=== PATIENT | female | born 1990 | race Caucasian/White ===

== ENCOUNTER 2016-11-27 21:43 | Emergency (ER) | payer SELFPAY ==
[2016-11-27] MEDS ORDERED: ACETAMINOPHEN 325 MG TABLET PO ONE (22:04)
[2016-11-27] MEDS ORDERED: NORMAL SALINE 1000 ML 2,000 ML IV ONE (22:17)
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
[2016-11-27 22:54] LABS: ALANINE AMINOTRANSFERASE 24 U/L (9-52); ALBUMIN 3.5 g/dL (3.5-5.0); ALKALINE PHOSPHATASE 64 U/L (38-126); ANION GAP 11 (5-19); ASPARTATE AMINO TRANSFERASE 15 U/L (14-36); BILIRUBIN,DIRECT 0.4 mg/dL (0.0-0.4); BILIRUBIN,TOTAL 1.1 mg/dL (0.2-1.3); BLOOD UREA NITROGEN 8 mg/dL (7-20); CALCIUM 8.4 mg/dL (8.4-10.2); CARBON DIOXIDE 25 mmol/L (22-30); CHLORIDE 108 mmol/L (98-107); CREATINE KINASE 25 U/L (30-135); CREATININE RESULT 0.68 mg/dL (0.52-1.25); GLUCOSE 101 mg/dL (75-110); POTASSIUM 3.5 mmol/L (3.6-5.0); SODIUM 143.8 mmol/L (137-145)
[2016-11-27 23:53] LABS: APPEARANCE,URINE SLIGHTLY-CLOUDY; BILIRUBIN,URINE NEGATIVE (NEGATIVE); GLUCOSE, URINE NEGATIVE (NEGATIVE); KETONES,URINE NEGATIVE (NEGATIVE); LEUKOCYTE ESTERASE,URINE SMALL (NEGATIVE); NITRITE,URINE POSITIVE (NEGATIVE); PROTEIN,URINE NEGATIVE (NEGATIVE); URINE SPECIFIC GRAVITY 1.003; UROBILINOGEN,URINE NEGATIVE mg/dL (<2.0)
[2016-11-28] MEDS ORDERED: CEPHALEXIN 500 MG CAPSULE PO ONE (00:14)
[2016-11-28 00:39] VITALS: BP 113/74
== END 2016-11-28 00:39 | disposition home or self-care (01) ==
LOC: ER 21:43
DX: N30.90 Cystitis, unspecified without hematuria (principal); E86.0 Dehydration; R50.9 Fever, unspecified; R11.10 Vomiting, unspecified; R10.30 Lower abdominal pain, unspecified; Z87.42 Personal history of other diseases of the female genital tract; Z86.14 Personal history of Methicillin resistant Staphylococcus aureus infection
CPT/HCPCS: 99284; 96360; 96361; 36415; 87086; 82550; 84703; 87088; 80053; 81001; 87186; J7030

== ENCOUNTER 2016-12-28 10:23 | Emergency (ER) | payer SELFPAY ==
[2016-12-28] MEDS ORDERED: SULFAMETHOXAZOLE/TRIMETHOPRIM 800-160 MG TABLET PO ONE (10:54)
[2016-12-28] MEDS ORDERED: CEPHALEXIN 500 MG CAPSULE PO ONE (10:54)
--- NOTE | 2016-12-28 10:57 | ER Document Report ---
HPI - HPI Patient complains to provider of: hand abscess Onset: Other - 3 days Onset/Duration: Persistent Quality of pain: Sharp Pain Level: 2 Context: Presents complaining of left dorsal hand tenderness and swelling. Patient denies any fever or history of MRSA. Patient does states she has a history of previous IV drug use although denies any current IV drug use. Associated Symptoms: Other - Hand abscess. denies: Fever Exacerbated by: Movement Relieved by: Denies Similar symptoms previously: Yes Recently seen / treated by doctor: No - ROS ROS below otherwise negative: Yes Systems Reviewed and Negative: Yes All other systems reviewed and negative - CONSTITUTIONAL Constitutional: DENIES: Fever, Chills - RESPIRATORY Respiratory: DENIES: Trouble Breathing - GASTROINTESTINAL Gastrointestinal: DENIES: Nausea, Patient vomiting - REPRODUCTIVE Reproductive: DENIES: : - MUSCULOSKELETAL Musculoskeletal: REPORTS: Extremity pain, Swelling - DERM Skin Color: Erythema Notes: abscess Past Medical History - General Information source: Patient - Social History Smoking Status: Current Every Day Smoker Frequency of alcohol use: Occasional Drug Abuse: Other - hx IV drug abuse Occupation: none Lives with: Family Family History: Malignancy Neurological Medical History: Reports: Hx Migraine. Denies: Hx Cerebrovascular Accident, Hx Seizures Endocrine Medical History: Denies: Hx Diabetes Mellitus Type 1, Hx Diabetes Mellitus Type 2 Renal/ Medical History: Reports: Hx Ovarian Cysts. Denies: Hx Peritoneal Dialysis Skin Medical History: Reports Hx Cellulitis, Reports Hx MRSA Psychiatric Medical History: Reports: Hx Anxiety, Hx Depression Past Surgical History: Reports: Hx Section - Immunizations Immunizations up to date: Yes Hx Diphtheria, Pertussis, Tetanus Vaccination: Yes Vertical Provider Document - CONSTITUTIONAL Agree With Documented VS: Yes Exam Limitations: No Limitations General Appearance: WD/WN, No Apparent Distress - INFECTION CONTROL TRAVEL OUTSIDE OF THE [place] IN LAST 30 DAYS: No - HEENT HEENT: Atraumatic, Normocephalic - NECK Neck: Normal Inspection - RESPIRATORY Respiratory: Breath Sounds Normal, No Respiratory Distress O2 Sat by Pulse Oximetry: 100 - CARDIOVASCULAR Cardiovascular: Regular Rate, Regular Rhythm, No Murmur Pulses: Normal: Radial - MUSCULOSKELETAL/EXTREMETIES Musculoskeletal/Extremeties: GILBERTO DEL ANGEL - NEURO Level of Consciousness: Awake, Alert, Appropriate Motor/Sensory: No Motor Deficit - DERM Integumentary: Warm, Dry, Abscess - Patient with pointing, fluctuant abscess to dorsal aspect of left hand measuring 1.5 cm diameter. Patient with makeup covering various track lopez to bilateral upper extremities Course - Vital Signs Vital signs: Temp Pulse Resp BP Pulse Ox 97.9 F 76 16 118/73 100 12/28/16 10:27 12/28/16 10:27 12/28/16 10:27 12/28/16 10:12/28/16 10:27 Procedures - Incision and Drainage Left Hand Type: Simple Anesthetic type: 1% Lidocaine Blade size: 11 I&D procedure: Betadine prep applied Incision Method: Incision made by scalpel Amount/type of drainage: large amount of purulent drainage Hands back picture: 1 - 1.5 cm pointing abscess with fluctuance Discharge - Discharge Clinical Impression: Abscess, hx iv drug use Condition: Stable Disposition: HOME, SELF-CARE Instructions: Abscess ([facility]), Trimethoprim-Sulfa ([facility]), Cephalexin ([facility]), Post Incision and Drainage Additional Instructions: Return immediately for any new or worsening symptoms Followup with your primary care provider, call tomorrow to make a followup appointment Return in 2 days for wound recheck Avoid injecting drugs into your veins as this can cause serious infections that can be life-threatening wound culture is pending, we will call if you need different treatment follow up with hand specialist, Dr Simpson, for any continued problems Prescriptions: Cephalexin Monohydrate [Keflex 500 mg Capsule] 500 mg PO Q6H 7 Days Naproxen [Naprosyn 250 Nmg Tablet] 1 tab PO BID #14 tablet Sulfamethoxazole/Trimethoprim [Bactrim Ds Tablet] 1 each PO BID #20 tablet Referrals: SHAYNA SIMPSON, [ACTIVE STAFF] - Follow up as needed
[2016-12-28] MEDS ORDERED: IBUPROFEN 800 MG TABLET PO ONE (10:58)
[2016-12-28 12:07] VITALS: BP 114/74
== END 2016-12-28 12:07 | disposition home or self-care (01) ==
LOC: ER 10:23
PROC: 0H9GXZZ Drainage of Left Hand Skin, External Approach (ICD-10-PCS; principal; 2016-12-28)
DX: L02.512 Cutaneous abscess of left hand (principal); F17.200 Nicotine dependence, unspecified, uncomplicated; Z86.14 Personal history of Methicillin resistant Staphylococcus aureus infection
CPT/HCPCS: 87070; 87075; 87077; 87186; 87205; 99283

== ENCOUNTER 2017-01-28 18:24 | Emergency (ER) | payer SELFPAY ==
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
[2017-01-28] MEDS ORDERED: DIPH/PERTUSS(ACELL)/TETANUS VAC/PF 0.5 ML SYR (>=10YO) IM ONE (18:39)
[2017-01-28 19:04] VITALS: BP 116/80
== END 2017-01-28 19:05 | disposition home or self-care (01) ==
LOC: ER 18:24
DX: T40.1X1A Poisoning by heroin, accidental (unintentional), initial encounter (principal); Y92.002 Bathroom of unspecified non-institutional (private) residence as the place of occurrence of the external cause; F13.10 Sedative, hypnotic or anxiolytic abuse, uncomplicated; S40.812A Abrasion of left upper arm, initial encounter; S40.811A Abrasion of right upper arm, initial encounter; S80.812A Abrasion, left lower leg, initial encounter; S80.811A Abrasion, right lower leg, initial encounter; X58.XXXA Exposure to other specified factors, initial encounter; F17.210 Nicotine dependence, cigarettes, uncomplicated; Z71.6 Tobacco abuse counseling; Z86.14 Personal history of Methicillin resistant Staphylococcus aureus infection; Z62.820 Parent-biological child conflict
CPT/HCPCS: 90471; 90715; 99284

== ENCOUNTER 2017-02-01 00:46 | Emergency (ER) | payer SELFPAY ==
--- NOTE | 2017-02-01 01:28 | ER Document Report ---
ED General - General Chief Complaint: Overdose Stated Complaint: POSSIBLE OVERDOSE Time Seen by Provider: 02/01/17 00:57 Notes: Patient is a 26-year-old female who presents with complaint of accidental overdose on heroin. Patient says she does not use heroin every day. She denies doing any other drugs with heroin. She was given Narcan because she was not breathing. She is now back to her baseline. She denies any suicidal ideations. She denies wanting herself. She denies really wanting any inpatient help for opiate dependence. She claims that she is not dependent on opiates because she does not use them every day. TRAVEL OUTSIDE OF THE [place] IN LAST 30 DAYS: No - Related Data Allergies/Adverse Reactions: No Known Allergies Allergy (Verified 01/28/17 18:38) Past Medical History - Social History Smoking Status: Current Every Day Smoker Chew tobacco use (# tins/day): No Frequency of alcohol use: Social Drug Abuse: Heroin, Marijuana Family History: Malignancy Neurological Medical History: Reports: Hx Migraine. Denies: Hx Cerebrovascular Accident, Hx Seizures Endocrine Medical History: Denies: Hx Diabetes Mellitus Type 1, Hx Diabetes Mellitus Type 2 Renal/ Medical History: Reports: Hx Ovarian Cysts. Denies: Hx Peritoneal Dialysis Skin Medical History: Reports Hx Cellulitis, Reports Hx MRSA Psychiatric Medical History: Reports: Hx Anxiety, Hx Depression Past Surgical History: Reports: Hx Section - Immunizations Immunizations up to date: Yes Hx Diphtheria, Pertussis, Tetanus Vaccination: Yes Review of Systems - Review of Systems Notes: My Normal Review Basic REVIEW OF SYSTEMS: CONSTITUTIONAL : Denies fever, chills, or sweats. Denies recent illness. EENT: Denies eye, ear, throat, or mouth pain or symptoms. Denies nasal or sinus congestion. CARDIOVASCULAR: Denies chest pain. RESPIRATORY: Respiratory depression due to opiates. This has since been reversed with Narcan. GASTROINTESTINAL: Denies abdominal pain. Denies nausea, vomiting, or diarrhea. MUSCULOSKELETAL: Denies neck or back pain or joint pain or swelling. SKIN: Denies rash or skin lesions. NEUROLOGICAL: Denies altered mental status or loss of consciousness. Denies headache. Denies weakness or paralysis or loss of use of either side. Denies problems with gait or speech. Denies sensory or motor loss. PSYCHIATRIC: Denies anxiety or stress or depression. ALL OTHER SYSTEMS REVIEWED AND NEGATIVE. Physical Exam - Vital signs Vitals: Temp Pulse Resp BP Pulse Ox 98 F 92 18 131/74 H 98 02/01/17 01:06 02/01/17 01:06 02/01/17 01:06 02/01/17 01:06 02/01/17 01:06 - Notes Notes: General Appearance: Well nourished, alert, cooperative, no acute distress, no obvious discomfort. Vitals: reviewed, See vital signs table. Head: no swelling or tenderness to the head Eyes: PERRL, EOMI, Conjuctiva clear Mouth: No decreasd moisture Lungs: No wheezing, No rales, No rhonci, No accessory muscle use, good air exchange bilaterally. Heart: Normal rate, Regular rythm, No murmur, no rub Abdomen: Normal BS, soft, No rigidity, No abdominal tenderness, No guarding, no rebound, no abdominal masses, no organomegaly Extremities: strength 5/5 in all extremities, good pulses in all extremities, multiple track lopez in both upper extremities. Skin: warm, dry, appropriate color, no rash Neuro: speech clear, oriented x 3, normal affect, responds appropriately to questions. Course - Re-evaluation Re-evalutation: 02/01/17 06:26 Patient is now awake and alert. She has had no further runs of hypoxemia. Her blood pressure was a little bit low around 4 AM therefore I gave her a small dose of Narcan. She has been fine ever since. She looks well. She is awake and alert and walking around without difficulty. Her mom is at bedside. I talked to him both at length. Patient says she can easily quit heroin use. She says she has done on her own without help. Her mom is concerned because she keeps going back to it. Her twin sister from an overdose not too long ago. Patient does agree to speak with the psychiatrist about further rehabilitation options and also about being set up for counseling due to the loss of her sister. She currently does not want any inpatient options at this time and therefore medical clearance blood work is not required. I did explain to him the Narcan I will be prescribing her. I explained to her that I hope she never has to use as however if she is to overdose again at least that she has an option to be lifesaving. I informed her she must return to ER immediately if she overuses a Narcan. Patient and mother agree with plan and patient will likely be discharged after they are evaluated by psychiatry. Dictation of this chart was performed using voice recognition software; therefore, there may be some unintended grammatical errors. - Vital Signs Vital signs: Temp Pulse Resp BP Pulse Ox 98 F 84 16 119/77 98 02/01/17 01:06 02/01/17 08:49 02/01/17 08:49 02/01/17 08:49 02/01/17 08:49 Discharge - Discharge Clinical Impression: Accidental heroin overdose Qualifiers: Encounter type: initial encounter Qualified Code(s): T40.1X1A - Poisoning by heroin, accidental (unintentional), initial encounter Condition: Good Disposition: HOME, SELF-CARE Additional Instructions: Please follow-up with resources given to you by the psychiatrist. Please return to the ER immediately if you have severe depression, recurrent opiate use leading to difficulty breathing, if you ever have to use a Narcan medication , or if you have any further concerns. Anytime you use Narcan you must return to the ER so we can monitor you. Prescriptions: Naloxone HCl [Narcan] 4 mg NS TREMAYNE #1 spray Forms: Return to Work
[2017-02-01] MEDS ORDERED: NALOXONE HCL INJ/PF 0.4 MG/1 ML SDV IV ONE (04:11)
[2017-02-01 08:50] VITALS: BP 119/77
--- NOTE | 2017-02-01 11:57 | ER Document Report ---
ED Psych Disorder / Suicide - General Chief Complaint: Overdose Stated Complaint: POSSIBLE OVERDOSE Time Seen by Provider: 02/01/17 00:57 Information source: Patient, Parent TRAVEL OUTSIDE OF THE [place] IN LAST 30 DAYS: No - HPI Notes: Patient is a 26-year-old female who presents with complaint of excellent overdose on heroin. Patient says she does not use heroin every day. She denies doing any other drugs with heroin. She was given Narcan because she was not breathing. She is now back to her baseline. She denies any suicidal ideations. She denies wanting herself. She denies really wanting any inpatient help for opiate dependence. She claims that she is not dependent on opiates because she does not use them every day. Patient reports she "accidentally overdosed" on heroin. Patient stated that she has used heroin "on and off" for a couple of years. She has been inpatient 3 times to include [facility] and [facility]. Last time she went inpatient was in April. Patient reports she had been sober from heroin until this week. Patient does admit she used Percocets "on and off" since April. Patient states that she did go to [facility] however it was "not good" because the doctor "treated me like crap and staff acted like you are nothing just a junky. " Patient's mother reports family history of substance abuse to include herself and the patient's twin sister. Patient's twin sister overdosed on August 2015 when using heroin laced with fentanyl. Patient's mother states she has never used heroin but did white with cocaine. She disclose confusion on why people would want to use heroin since they just seem to sleep where "at least with cocaine you were doing stuff and living her life." Patient is alert and orientated to person, place, time and circumstance. Mood is euthymic with congruent affect. Patient denies suicidal and homicidal ideation. Patient denies auditory and visual hallucinations. Delusions were absent and behaviors congruent with intact reality based presentation (i.e. organized linear thinking). Eye contact was fair. Intellectual ability appears to be within average range. Conversational speech was within normal rate, tone and prosody. Attention and concentration was fair. Insight, judgment, impulse control is poor due to substance abuse. Substance abuse; opiate- moderate Impression\\plan: Patient is considered psychiatrically clear for discharge. She does not meet IVC criteria per [place] GS 122C. Patient denies suicidal and homicidal ideation. Delusions are absent and behavior is congruent with intact reality based presentation (i.e. organized, linear thinking). Patient disclosed heroin abuse with multiple attempts at sobriety. Patient accepted substance abuse treatment resources. Patient is recommended follow-up with outpatient substance abuse treatment. Dr. Posada was consulted on the care and management of this patient; attending physician is in agreement with recommendations and disposition. - Related Data Allergies/Adverse Reactions: No Known Allergies Allergy (Verified 01/28/17 18:38) Past Medical History - Social History Smoking Status: Current Every Day Smoker Chew tobacco use (# tins/day): No Frequency of alcohol use: Social Drug Abuse: Heroin, Marijuana Family History: Malignancy Neurological Medical History: Reports: Hx Migraine. Denies: Hx Cerebrovascular Accident, Hx Seizures Endocrine Medical History: Denies: Hx Diabetes Mellitus Type 1, Hx Diabetes Mellitus Type 2 Renal/ Medical History: Reports: Hx Ovarian Cysts. Denies: Hx Peritoneal Dialysis Skin Medical History: Reports Hx Cellulitis, Reports Hx MRSA Psychiatric Medical History: Reports: Hx Anxiety, Hx Depression Past Surgical History: Reports: Hx Section - Immunizations Immunizations up to date: Yes Hx Diphtheria, Pertussis, Tetanus Vaccination: Yes Physical Exam - Vital signs Vitals: Temp Pulse Resp BP Pulse Ox 98 F 92 18 131/74 H 98 02/01/17 01:06 02/01/17 01:06 02/01/17 01:06 02/01/17 01:06 02/01/17 01:06 Course - Vital Signs Vital signs: Temp Pulse Resp BP Pulse Ox 98 F 84 16 119/77 98 02/01/17 01:06 02/01/17 08:49 02/01/17 08:49 02/01/17 08:49 02/01/17 08:49 Discharge - Discharge Clinical Impression: Accidental heroin overdose Qualifiers: Encounter type: initial encounter Qualified Code(s): T40.1X1A - Poisoning by heroin, accidental (unintentional), initial encounter Condition: Good Disposition: HOME, SELF-CARE Additional Instructions: Please follow-up with resources given to you by the psychiatrist. Please return to the ER immediately if you have severe depression, recurrent opiate use leading to difficulty breathing, if you ever have to use a Narcan medication , or if you have any further concerns. Anytime you use Narcan you must return to the ER so we can monitor you. Prescriptions: Naloxone HCl [Narcan] 4 mg NS TREMAYNE #1 spray Forms: Return to Work
== END 2017-02-01 08:52 | disposition home or self-care (01) ==
LOC: ER 00:46
DX: T40.1X1A Poisoning by heroin, accidental (unintentional), initial encounter (principal); F17.200 Nicotine dependence, unspecified, uncomplicated; Z86.14 Personal history of Methicillin resistant Staphylococcus aureus infection; Z81.3 Family history of other psychoactive substance abuse and dependence
CPT/HCPCS: 99285; 96374; J2310

== ENCOUNTER 2017-03-08 15:56 | Emergency (ER) | payer SELFPAY ==
[2017-03-08 16:09] VITALS: BP 145/77
[2017-03-08] MEDS ORDERED: ACETAMINOPHEN 325 MG TABLET PO ONE (17:54)
[2017-03-08] MEDS ORDERED: CEPHALEXIN 500 MG CAPSULE PO ONE (20:24)
[2017-03-08] MEDS ORDERED: SULFAMETHOXAZOLE/TRIMETHOPRIM 800-160 MG TABLET PO ONE (20:24)
[2017-03-08] MEDS ORDERED: HYDROCODONE/ACETAMINOPHEN 5-325 MG 6 TAB/DSPK PO PRN (20:25)
--- NOTE | 2017-03-08 20:28 | ER Document Report ---
ED Skin Rash/Insect Bite/Abscs - General Chief Complaint: Insect Bite Stated Complaint: POSSIBLE BUG BITE Time Seen by Provider: 03/08/17 20:23 Mode of Arrival: Ambulatory Information source: Patient Notes: 26-year-old female presents to ED for red swollen painful left foot. She states a bug walked across her foot a couple days ago the next day she did not have any redness or pain by the next day her foot became red and swollen and now it is painful to even put her foot on the ground. TRAVEL OUTSIDE OF THE [place] IN LAST 30 DAYS: No - HPI Patient complains to provider of: Tender/swollen area Onset: Other Onset/Duration: Gradual - Several days ago Quality of pain: Pressure, Sharp, Throbbing Severity: Severe Pain Level: 5 Skin Character: Abscess, Erythema, Swelling, Tenderness Skin Temperature: Hot Quality of rash: Painful Identify cause: No Exacerbated by: Movement, Walking Relieved by: Denies Similar symptoms previously: No Recently seen / treated by doctor: No - Related Data Allergies/Adverse Reactions: No Known Allergies Allergy (Verified 01/28/17 18:38) Past Medical History - General Information source: Patient - Social History Smoking Status: Current Every Day Smoker Cigarette use (# per day): Yes - 1/2-1 Chew tobacco use (# tins/day): No Smoking Education Provided: Yes - less than 1 min Frequency of alcohol use: None Drug Abuse: Marijuana Occupation: no Lives with: Parents Family History: Malignancy Patient has suicidal ideation: No Patient has homicidal ideation: No - Past Medical History Cardiac Medical History: Reports: None Pulmonary Medical History: Reports: None EENT Medical History: Reports: None Neurological Medical History: Reports: Hx Migraine Endocrine Medical History: Reports: None Renal/ Medical History: Reports: Hx Ovarian Cysts Malignancy Medical History: Reports: None GI Medical History: Reports: None Musculoskeltal Medical History: Reports None Skin Medical History: Reports Hx Cellulitis, Reports Hx MRSA Psychiatric Medical History: Reports: Hx Anxiety, Hx Depression Past Surgical History: Reports: Hx Section - Immunizations Immunizations up to date: Yes Hx Diphtheria, Pertussis, Tetanus Vaccination: Yes Review of Systems - Review of Systems Constitutional: No symptoms reported EENT: No symptoms reported Cardiovascular: No symptoms reported Respiratory: No symptoms reported Gastrointestinal: No symptoms reported Genitourinary: No symptoms reported Female Genitourinary: No symptoms reported Musculoskeletal: No symptoms reported Skin: Change in color, Lesions, Other - Red swollen painful left foot with a tender probable abscess to the top of the foot. Patient states a bug walked across her foot several days ago and now she has swelling and tenderness to the foot Hematologic/Lymphatic: No symptoms reported Neurological/Psychological: No symptoms reported Physical Exam - Vital signs Vitals: Temp Pulse Resp BP Pulse Ox 98.3 F 86 16 145/77 H 100 03/08/17 16:07 03/08/17 16:07 03/08/17 16:07 03/08/17 16:07 03/08/17 16:07 Interpretation: Normal - General General appearance: Appears well, Alert - HEENT Head: Normocephalic, Atraumatic Eyes: Normal Pupils: PERRL - Respiratory Respiratory status: No respiratory distress Chest status: Nontender Breath sounds: Normal Chest palpation: Normal - Cardiovascular Rhythm: Regular Heart sounds: Normal auscultation Murmur: No - Abdominal Inspection: Normal Distension: No distension Bowel sounds: Normal Tenderness: Nontender Organomegaly: No organomegaly - Back Back: Normal, Nontender - Extremities General upper extremity: Normal inspection, Nontender, Normal color, Normal ROM , Normal temperature General lower extremity: Normal ROM, Normal temperature, Normal weight bearing. No: Venkatesh's sign Foot: Tender, Edema, No evidence of FB, Other - Abscess to the top of the left foot. No: Abrasion, Deformity, Ecchymosis, Instability, Laceration, Metatarsal compress. pain, Nail injury, Navicular tenderness, Puncture wound, Tender 5th metatarsal, Unable to bear weight - Neurological Neuro grossly intact: Yes Cognition: Normal Orientation: AAOx4 Herman Coma Scale Eye Opening: Spontaneous [place] Coma Scale Verbal: Oriented [place] Coma Scale Motor: Obeys Commands [place] Coma Scale Total: 15 Speech: Normal Motor strength normal: LUE, RUE, LLE, RLE Sensory: Normal - Psychological Associated symptoms: Normal affect, Normal mood - Skin Skin Temperature: Warm Skin Moisture: Dry Skin Color: Normal Skin irregularity: Abscess Location of irregularity: Other - Left foot Irregularity with: Swelling, Tenderness, Warmth Course - Re-evaluation Re-evalutation: 03/08/17 21:[address] Mosley for the abscess to the left top of the foot. He stated just I&D and started on antibiotics. Patient's abscess was I&D with copious amounts of purulent drainage. Wound culture was sent. Patient was started on Septra and Keflex. She was also given a [place] dispense pack for the pain. Patient given crutches due to the pain in her foot. Patient instructed to follow-up within the next 24-48 hours if pain swelling and redness have not improved. - Vital Signs Vital signs: Temp Pulse Resp BP Pulse Ox 98.3 F 86 16 145/77 H 100 03/08/17 16:07 03/08/17 16:07 03/08/17 16:07 03/08/17 16:07 03/08/17 16:07 Procedures - Incision and Drainage Left Foot Time completed: 20:54 Type: Simple Anesthetic type: 1% Lidocaine mL's of anesthetic: 5 Blade size: 11 I&D procedure: Shurclens applied Incision Method: Incision made by scalpel Amount/type of drainage: copious amount of purulent drainage Discharge - Discharge Clinical Impression: abscess left top of foot Condition: Stable Disposition: HOME, SELF-CARE Instructions: Family Physicians / Practices Additional Instructions: ABSCESS: You have an abscess (boil). This a pus-forming infection, usually due to staph. Some boils may be left to drain on their own, but most require lancing. From the time the tender lump first appears, it may be three or four days before the abscess is ready to jason. Local heat and rest help at this stage of treatment. An antibiotic may prevent spread of the infection. Once the abscess is opened, packing may be placed into it. This is done so pus is not sealed inside by premature closure of the cavity. The packing will be removed at your follow-up visit or you may be advised to remove it yourself at home. Sometimes this packing must be replaced a few times during healing. The wound will heal with surprisingly little scar. Depending on the size and location of an abscess, healing can take one to four weeks. You may shower and wash the area around the incision site two or three times a day. Antibiotics may be prescribed, but are usually not necessary after an abscess has been drained. If you develop fever, chills, worsening pain, or increasing swelling in the area, call the doctor or return immediately. POST INCISION AND DRAINAGE: You have had an incision made to allow drainage of an abscess. The incision must remain open so that pus and debris can drain from the wound. If the abscess cavity is large, packing is placed. This keeps the tissues from collapsing and trapping pus inside, while the body shrinks the cavity. The packing may need to be replaced every day or two. The physician will instruct you on the packing. Keep a bulky dressing over the area. Replace it if it becomes saturated with blood or pus. Do not disturb the packing (if present). You may shower and cleanse the area with gentle soap and warm water two or three times a day. Local warmth may be soothing, and may promote faster healing. Return if you develop high fever or chills, or if you note spreading redness, increasing swelling, or increasing tenderness. ORAL NARCOTIC MEDICATION: You have been given a [employer] dispense pack for pain control. This medication is a narcotic. It's best taken with food, as nausea can result if taken on an empty stomach. Don't operate machinery or drive within six hours of taking this medication. Do not combine this medicine with alcohol, or with any medication which can cause sedation (such as cold tablets or sleeping pills) unless you get permission from the physician. Narcotics tend to cause constipation. If possible, drink plenty of fluids and eat a diet high in fiber and fruits. CEPHALEXIN: The antibiotic you've been prescribed is a member of the cephalosporin class. This type of antibiotic covers a wide variety of infections, including those of the skin, lungs, and urinary tract. It's useful for staph infections. This antibiotic is slightly similar to the penicillin family. In rare cases , a person who is allergic to penicillin will also be allergic to this medication. If you have had a severe allergic reaction to penicillin, and have not taken this antibiotic since that time, notify your doctor. Antibiotics which cover many germs ("broad spectrum" antibiotics) are more likely to cause diarrhea or "yeast" infections. Women prone to vaginal yeast problems may suffer an attack after taking this antibiotic. In infants, oral thrush (white spots "stuck" on the cheek) or yeast diaper rash may result. See your doctor if these problems occur. Call at once if you develop itching, hives , shortness of breath, or lightheadedness. TRIMETHOPRIM-SULFA: You have been given a prescription for trimethoprim-sulfa (TMS, Septra, Bactrim). This is a combination antibiotic of the sulfa class, often used for urinary tract infections, middle ear infections, bronchitis, shigella intestinal infection, and Pneumocystis pneumonia. TMS is usually well-tolerated. Occasional side effects include nausea and decreased appetite. Septra is not recommended for infants less than two months of age. Do not take this medication if you have experienced severe side effects or allergy to sulfa medicine. You should stop this medicine at once and contact your physician if you develop any rash, joint pain, shortness of breath, bruising, or jaundice ( yellow color in the skin), or if you develop any other new or unusual symptoms. Epsom Salt Soaks Soak the wound area in a container of warm epsom salt water. If you can't get the wound area into a bucket or mendoza, use a folded towel soaked in the epsom salt solution and apply to the area. Use clean hot tap water (about the temperature of a very warm bath), mixing in about one (1) teaspoon for every pint of water. Two gallon --> 16 teaspoons Epsom Salts One gallon --> 8 teaspoons Epsom Salts Two quarts --> 4 teaspoons Epsom Salts One quart --> 2 teaspoons Epsom Salts Soak the wound for about 20 minutes while gently moving it around in the water. Repeat this four (4) times a day. FOLLOW-UP CARE: Return to the ED in the next 24-48 hours if redness swelling and pain have not improved. Take antibiotics until they are completed. You have been given pain medicine that she can take every 6 hours. Be sure to soak the foot as instructed. Most simple abscesses will not require a follow up visit. If you had packing placed in the abscess, remove it as instructed by the physician. If you have been referred to a physician for follow-up care, call the physicians office for an appointment as you were instructed or within the next two days. If you experience worsening or a significant change in your symptoms, return to the Emergency Department at any time for re-evaluation. Prescriptions: Cephalexin Monohydrate [Keflex 500 mg Capsule] 500 mg PO QID #20 capsule Sulfamethoxazole/Trimethoprim [Septra-Ds 800-160 mg Tablet] 1 tab PO BID #20 tablet Forms: Elevated Blood Pressure, Smoking Cessation Education
== END 2017-03-08 21:24 | disposition home or self-care (01) ==
LOC: ER 15:56
PROC: 0H9NXZZ Drainage of Left Foot Skin, External Approach (ICD-10-PCS; principal; 2017-03-08)
DX: L02.612 Cutaneous abscess of left foot (principal); F17.210 Nicotine dependence, cigarettes, uncomplicated
CPT/HCPCS: 87070; 87075; 87077; 87186; 87205; 99283

== ENCOUNTER 2017-03-12 09:51 | Emergency (ER) | payer SELFPAY ==
[2017-03-12] MEDS ORDERED: NORMAL SALINE 1000 ML 1,000 ML IV ONE (10:38)
[2017-03-12 11:31] LABS: ABSOLUTE BASOPHILS # (AUTO) 0.1 10^3/uL (0.0-0.2); ABSOLUTE EOSINOPHILS # (AUTO) 0.1 10^3/uL (0.0-0.6); ABSOLUTE LYMPHOCYTES (AUTO) 1.3 10^3/uL (0.5-4.7); ABSOLUTE MONOCYTES (AUTO) 0.4 10^3/uL (0.1-1.4); ABSOLUTE NEUT (AUTO) 7.5 10^3/uL (1.7-8.2); BASOPHILS % (AUTO) 0.8 % (0-2); EOSINOPHILS % (AUTO) 0.8 % (0-6); HEMOGLOBIN 12.1 g/dL (12.0-15.5); HGB HCT DIFFERENCE 1.3; LYMPHOCYTES % (AUTO) 13.5 % (13-45); MEAN CORPUSCULAR HEMOGLOBIN 28.9 pg (27.0-33.4); MEAN CORPUSCULAR HGB CONC 34.5 g/dL (32.0-36.0); MEAN CORPUSCULAR VOLUME 84 fl (80-97); MONOCYTES % (AUTO) 4.1 % (3-13); RED BLOOD COUNT 4.17 10^6/uL (3.72-5.28); RED CELL DISTRIBUTION WIDTH 15.8 % (11.5-14.0); SEGMENTED NEUTROPHILS % (AUTO) 80.8 % (42-78); WHITE BLOOD COUNT 9.3 10^3/uL (4.0-10.5)
--- NOTE | 2017-03-12 11:42 | ER Document Report ---
ED Syncope and Near Syncope - General Chief Complaint: Foot Pain Stated Complaint: LEFT FOOT PAIN Time Seen by Provider: 03/12/17 10:01 Mode of Arrival: Ambulatory Information source: Patient, Parent Notes: Patient states that she had an incision and drainage procedure 4 days ago on a possible spider bite to her left foot. Patient denies seeing the spider bite her foot. Patient does report a previous history of IV drug use although declines any recent IV drug use. Patient was at home this morning and felt faint and had a syncopal episode 245 minutes prior to arrival. Patient denies any nausea, vomiting or diarrhea. Patient denies any recent bedrest, travel or immobilization. Patient denies any history of DVT or PE in the past. Patient denies any chest pain, dyspnea or palpitations. TRAVEL OUTSIDE OF THE [place] IN LAST 30 DAYS: No - HPI Episode witnessed (by whom): Yes Symptoms prior to episode: Other - Left foot pain from abscess drainage. No: Fever, Headache, Palpitations, Short of breath Quality of pain: Achy Pain Level: 3 Context: Collapsed. denies: Low blood sugar, Recent immobilization, Recent travel, Seizure activity observed Current symptoms: denies: Chest pain, Headache, Neck pain, Short of breath, Vomiting Similar symptoms previously: No Recently seen / treated by doctor: No - Related Data Allergies/Adverse Reactions: No Known Allergies Allergy (Verified 01/28/17 18:38) Past Medical History - General Information source: Patient - Social History Smoking Status: Current Every Day Smoker Frequency of alcohol use: None Drug Abuse: Cocaine, Marijuana, Other - Previous history of IV drug use Occupation: none Lives with: Spouse/Significant other Family History: Malignancy Neurological Medical History: Reports: Hx Migraine. Denies: Hx Cerebrovascular Accident, Hx Seizures Endocrine Medical History: Denies: Hx Diabetes Mellitus Type 1, Hx Diabetes Mellitus Type 2 Renal/ Medical History: Reports: Hx Ovarian Cysts. Denies: Hx Peritoneal Dialysis Skin Medical History: Reports Hx Cellulitis, Reports Hx MRSA Psychiatric Medical History: Reports: Hx Anxiety, Hx Depression Past Surgical History: Reports: Hx Section - Immunizations Immunizations up to date: Yes Hx Diphtheria, Pertussis, Tetanus Vaccination: Yes Review of Systems - Review of Systems Constitutional: No symptoms reported. denies: Fever EENT: No symptoms reported Cardiovascular: Syncope. denies: Chest pain, Palpitations, Dizziness Respiratory: Cough. denies: Short of breath Gastrointestinal: No symptoms reported. denies: Abdominal pain, Nausea, Vomiting Genitourinary: No symptoms reported Female Genitourinary: No symptoms reported. denies: Musculoskeletal: Other - left foot pain. denies: Back pain Skin: Other - abscess s/p I&D to left foot Hematologic/Lymphatic: No symptoms reported Neurological/Psychological: No symptoms reported Physical Exam - Vital signs Vitals: Temp Pulse BP Pulse Ox 98.6 F 89 130/66 H 97 03/12/17 14:57 03/12/17 14:57 03/12/17 14:57 03/12/17 14:57 - General General appearance: Appears well, Alert In distress: None - HEENT Head: Normocephalic, Atraumatic Eyes: Normal Conjunctiva: Normal Nasal: Normal Mouth/Lips: Normal Mucous membranes: Dry Neck: Normal, Supple. No: Lymphadenopathy - Respiratory Respiratory status: No respiratory distress Chest status: Nontender Breath sounds: Normal. No: Rales, Rhonchi, Stridor, Wheezing Chest palpation: Normal - Cardiovascular Rhythm: Regular Heart sounds: S1 appreciated, S2 appreciated Murmur: No - Abdominal Inspection: Normal Distension: No distension Tenderness: Nontender - Back Back: Normal, Nontender. No: CVA tenderness, Vertebra tenderness - Extremities General upper extremity: Normal inspection, Normal ROM General lower extremity: Tender - Tenderness to dorsal aspect of left foot at site of previous abscess status post incision and drainage, mild erythema surrounding lesion - Neurological Neuro grossly intact: Yes Cognition: Normal Herman Coma Scale Eye Opening: Spontaneous [place] Coma Scale Verbal: Oriented [place] Coma Scale Motor: Obeys Commands Herman Coma Scale Total: 15 - Psychological Associated symptoms: Normal affect, Normal mood - Skin Skin Temperature: Warm Skin Moisture: Dry Skin Color: Erythema - Dorsal aspect of left foot, Other - Multiple track lopez to bilateral upper extremities Course - Re-evaluation Re-evalutation: 03/12/17 11:[address] Merida regarding patient presentation diagnostic evaluation. 03/12/17 14:22 Discuss results of patient's diagnostic tests with Dr. Merida who agrees with discharge plan of care. Patient resting comfortably, patient denies any complaints at this time. Patient without any concerns of chest pain, dyspnea, palpitations, nausea or vomiting. Discussed results of patient's diagnostic test with patient. Patient offered to be given treatment center information. Discussed results of patient's wound culture and importance of continued treatment. Patient encouraged to increase fluids and avoid any recreational drug use. Patient advised of elevated potassium level and need for to have labs rechecked in 2 days. Patient is EKG without any significant changes. - Vital Signs Vital signs: Temp Pulse Resp BP Pulse Ox 98.6 F 89 130/66 H 97 03/12/17 14:57 03/12/17 14:57 03/12/17 14:57 03/12/17 14:57 - Laboratory Result Diagrams: 03/12/17 11:04 03/12/17 11:04 Laboratory results interpreted by me: 03/12/17 03/12/17 03/12/17 11:04 11:04 11:04 Hct 35.0 L RDW 15.8 H Seg Neutrophils % 80.8 H D-Dimer 1.03 H Potassium 5.3 H Glucose 119 H Ur Leukocyte Esterase 03/12/17 11:04 Hct RDW Seg Neutrophils % D-Dimer Potassium Glucose Ur Leukocyte Esterase TRACE H 03/12/17 14:24 Labs- Entire Visit 03/12/17 03/12/17 03/12/17 11:04 11:04 11:04 WBC 9.3 RBC 4.17 Hgb 12.1 Hct 35.0 L MCV 84 MCH 28.9 MCHC 34.5 RDW 15.8 H Plt Count 315 Seg Neutrophils % 80.8 H Lymphocytes % 13.5 Monocytes % 4.1 Eosinophils % 0.8 Basophils % 0.8 Absolute Neutrophils 7.5 Absolute Lymphocytes 1.3 Absolute Monocytes 0.4 Absolute Eosinophils 0.1 Absolute Basophils 0.1 D-Dimer Sodium 143.9 Potassium 5.3 H Chloride 105 Carbon Dioxide 24 Anion Gap 15 BUN 16 Creatinine 0.87 Est GFR ( Amer) > 60 Est GFR (Non-Af Amer) > 60 Glucose 119 H Calcium 10.1 Magnesium 2.2 Total Bilirubin 0.5 Direct Bilirubin 0.4 Indirect Bilirubin Not Reportable Neonat Total Bilirubin Not Reportable AST 31 ALT 36 Alkaline Phosphatase 57 Total Protein 7.8 Albumin 4.3 Serum HCG, Qual NEGATIVE Urine Color Urine Appearance Urine pH Ur Specific [place] Urine Protein Urine Glucose (UA) Urine Ketones Urine Blood Urine Nitrite Urine Bilirubin Urine Urobilinogen Ur Leukocyte Esterase Urine WBC (Auto) Urine RBC (Auto) U Hyaline Cast (Auto) Urine Bacteria (Auto) Squamous Epi Cells Auto Urine Mucus (Auto) Urine Ascorbic Acid Urine Opiates Screen Urine Methadone Screen Ur Barbiturates Screen Ur Phencyclidine Scrn Ur Amphetamines Screen U Benzodiazepines Scrn Urine Cocaine Screen U Marijuana (THC) Screen 03/12/17 03/12/17 03/12/17 11:04 11:04 11:04 WBC RBC Hgb Hct MCV MCH MCHC RDW Plt Count Seg Neutrophils % Lymphocytes % Monocytes % Eosinophils % Basophils % Absolute Neutrophils Absolute Lymphocytes Absolute Monocytes Absolute Eosinophils Absolute Basophils D-Dimer 1.03 H Sodium Potassium Chloride Carbon Dioxide Anion Gap BUN Creatinine Est GFR ( Amer) Est GFR (Non-Af Amer) Glucose Calcium Magnesium Total Bilirubin Direct Bilirubin Indirect Bilirubin Neonat Total Bilirubin AST ALT Alkaline Phosphatase Total Protein Albumin Serum HCG, Qual Urine Color YELLOW Urine Appearance SLIGHTLY-CLOUDY Urine pH 7.0 Ur Specific [place] 1.010 Urine Protein NEGATIVE Urine Glucose (UA) NEGATIVE Urine Ketones NEGATIVE Urine Blood NEGATIVE Urine Nitrite NEGATIVE Urine Bilirubin NEGATIVE Urine Urobilinogen NEGATIVE Ur Leukocyte Esterase TRACE H Urine WBC (Auto) 9 Urine RBC (Auto) 0 U Hyaline Cast (Auto) 5 Urine Bacteria (Auto) TRACE Squamous Epi Cells Auto 6 Urine Mucus (Auto) RARE Urine Ascorbic Acid NEGATIVE Urine Opiates Screen UNCONFIRMED POSITIVE Urine Methadone Screen NEGATIVE Ur Barbiturates Screen NEGATIVE Ur Phencyclidine Scrn NEGATIVE Ur Amphetamines Screen NEGATIVE U Benzodiazepines Scrn NEGATIVE Urine Cocaine Screen UNCONFIRMED POSITIVE U Marijuana (THC) Screen UNCONFIRMED POSITIVE - Diagnostic Test Radiology reviewed: Reports reviewed Discharge - Discharge Clinical Impression: hx abscess to left foot, History of recreational drug use, Hyperkalemia Syncope Qualifiers: Syncope type: unspecified Qualified Code(s): R55 - Syncope and collapse Condition: Stable Disposition: HOME, SELF-CARE Instructions: Antibiotic Therapy ([facility]), Cocaine Abuse ([facility]), Dressing Instructions for Open Wounds ([facility]), MRSA Cellulitis ([facility]), Syncopal Episode ([facility] ) Additional Instructions: Return immediately for any new or worsening symptoms Followup with your primary care provider, call tomorrow to make a followup appointment Continue to take your antibiotic as previously prescribed Avoid any recreational drug use Follow-up with the primary care provider for recheck. Your potassium tests with mildly elevated today. The primary doctor can recheck this test in 2 days. Referrals: [facility] [Provider Group] - Follow up as needed [facility] [Provider Group] - Follow up as needed [facility] [Provider Group] - Follow up as needed [facility] [Provider Group] - Follow up tomorrow
[2017-03-12 11:47] LABS: URINE BARBITURATES SCREEN NEGATIVE; URINE METHADONE SCREEN NEGATIVE; URINE OPIATES LOW UNCONFIRMED POSITIVE; URINE PHENCYCLIDINE SCREEN NEGATIVE
[2017-03-12 11:58] LABS: ALANINE AMINOTRANSFERASE 36 U/L (9-52); ALBUMIN 4.3 g/dL (3.5-5.0); ALKALINE PHOSPHATASE 57 U/L (38-126); ANION GAP 15 (5-19); ASPARTATE AMINO TRANSFERASE 31 U/L (14-36); BILIRUBIN,DIRECT 0.4 mg/dL (0.0-0.4); BILIRUBIN,TOTAL 0.5 mg/dL (0.2-1.3); BLOOD UREA NITROGEN 16 mg/dL (7-20); CALCIUM 10.1 mg/dL (8.4-10.2); CARBON DIOXIDE 24 mmol/L (22-30); CHLORIDE 105 mmol/L (98-107); CREATININE RESULT 0.87 mg/dL (0.52-1.25); GLUCOSE 119 mg/dL (75-110); MAGNESIUM 2.2 mg/dL (1.6-2.3); POTASSIUM 5.3 mmol/L (3.6-5.0); SODIUM 143.9 mmol/L (137-145); TOTAL PROTEIN 7.8 g/dL (6.3-8.2)
[2017-03-12 12:21] LABS: APPEARANCE,URINE SLIGHTLY-CLOUDY; BILIRUBIN,URINE NEGATIVE (NEGATIVE); GLUCOSE, URINE NEGATIVE (NEGATIVE); KETONES,URINE NEGATIVE (NEGATIVE); LEUKOCYTE ESTERASE,URINE TRACE (NEGATIVE); NITRITE,URINE NEGATIVE (NEGATIVE); PROTEIN,URINE NEGATIVE (NEGATIVE); UROBILINOGEN,URINE NEGATIVE mg/dL (<2.0)
--- NOTE | 2017-03-12 13:06 | RADIOLOGY REPORT (SQ) ---
EXAM DESCRIPTION: CTA CHEST COMPLETED DATE/TIME: 03/12/2017 12:52 pm REASON FOR STUDY: syncope, elevated dimer COMPARISON: None. TECHNIQUE: CT scan of the chest performed using helical scanning technique with dynamic intravenous contrast injection. Images reviewed with lung, soft tissue and bone windows. Reconstructed coronal and sagittal MPR images reviewed. Additional 3 dimensional post-processing performed to develop Maximal Intensity Projection images (OK P). All images stored on PACS. All CT scanners at this facility use dose modulation, iterative reconstruction, and/or weight based d osing when appropriate to reduce radiation dose to as low as reasonably achievable (ALARA). [facility]: Dose Right [facility]: CareDose [facility]: Dose Right [facility]: Teradose 4D [facility]: Backyard CONTRAST TYPE AND DOSE: contrast/concentration: Isovue 370.00 mg/ml; Total Contrast Delivered: 62.0 ml; Total Saline Delivered: 87.5 ml Contrast bolus optimized for the pulmonary arteries. Not diagnostic for the aorta. RENAL FUNCTION: Creatinine 0.9 RADIATION DOSE: Up-to-date CT equipment and radiation dose reduction techniques were employed. CTDIv ol: 15.2 - 23.2 mGy. DLP: 533 mGy-cm. . LIMITATIONS: None. FINDINGS: LUNGS AND PLEURA: No masses, infiltrates, pneumothorax. No pleural effusions, calcificati ons. AORTA AND GREAT VESSELS: No aneurysm. Contrast bolus not optimized for the aorta. HEART: No pericardial effusion. No significant coronary artery calcifications. PULMONARY ARTERIES: No emboli visualized in the main pulmonary arteries or the segmental branches. HILAR AND MEDIASTINAL STRUCTURES: No identified masses or abnormal nodes. HARDWARE: None in the chest. UPPER ABDOMEN: No significant findings. Limited exam. THYROID AND OTHER SOFT TISSUES: No masses. No adenopathy. BONES: No acute or significant finding. 3D MIPS: Confirm above findings. OTHER: No other significant finding. IMPRESSION: NORMAL CTA OF THE CHEST. NO PULMONARY EMBOLI. COMMENT: Quality ID # [id number]: Final reports with documentation of one or more dose reduction techniques (e.g., Automated exposure control, adjustment of the mA and/or kV according to patient size, use of iterative reconstruction technique) TECHNICAL DOCUMENTATION: JOB ID: [id number]- All Rights Reserved
--- NOTE | 2017-03-12 13:25 | EKG REPORT ---
SEVERITY:- BORDERLINE ECG - SINUS RHYTHM BORDERLINE T ABNORMALITIES, ANTERIOR LEADS : Confirmed by: Fanny Leigh MD 12-Mar-2017 13:24:35
[2017-03-12 15:11] VITALS: BP 130/66
== END 2017-03-12 15:01 | disposition home or self-care (01) ==
LOC: ER 09:51
DX: R55 Syncope and collapse (principal); M79.672 Pain in left foot; E87.5 Hyperkalemia; F14.11 Cocaine abuse, in remission; F12.11 Cannabis abuse, in remission; F17.200 Nicotine dependence, unspecified, uncomplicated; R05 Cough; Z98.890 Other specified postprocedural states; Z87.2 Personal history of diseases of the skin and subcutaneous tissue; Z86.14 Personal history of Methicillin resistant Staphylococcus aureus infection
CPT/HCPCS: 93005; 99284; 96360; 36415; 83735; 84703; 85025; 80053; 81001; 80307; 85379; 71275; 93010; J7030

== ENCOUNTER 2017-03-18 02:20 | Emergency (ER) | payer OTHER ==
[2017-03-18] MEDS ORDERED: TRAMADOL HCL 50 MG TABLET PO ONE (02:41)
[2017-03-18] MEDS ORDERED: NAPROXEN 250 MG TABLET PO ONE (02:42)
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
[2017-03-18 05:13] VITALS: BP 124/74
== END 2017-03-18 05:13 | disposition home or self-care (01) ==
LOC: ER 02:20
DX: S89.92XA Unspecified injury of left lower leg, initial encounter (principal); M54.5 Low back pain; F17.200 Nicotine dependence, unspecified, uncomplicated; V43.62XA Car passenger injured in collision with other type car in traffic accident, initial encounter; Z86.14 Personal history of Methicillin resistant Staphylococcus aureus infection
CPT/HCPCS: 99284

== ENCOUNTER → 2018-01-16 | Outpatient (CLI) | payer SELFPAY ==
--- NOTE | 2018-01-16 16:05 | RADIOLOGY REPORT (SQ) ---
EXAM DESCRIPTION: U/S [id number] TRNABD 1GES W/ODOP COMPLETED DATE/TIME: 01/16/2018 3:18 pm REASON FOR STUDY: Z34.81 ENCOUNTER FOR SUPRVSN OF NORMAL , FIRST TRIMESTER Z34.81 ENCOUNTE R FOR SUPRVSN OF NORMAL , FIRST TRIM COMPARISON: None. TECHNIQUE: Transabdominal static and realtime grayscale images acquired of the pelvis. Additional se lected spectral and color Doppler images recorded. All images stored on PACs. bHCG: Not available. CLINICAL DATES: EGA LIMITATIONS: None. FINDINGS: FETUS: Living intrauterine . ULTRASOUND EGA: 9 weeks 1 day. ULTRASOUND CHEYANNE: 08/20/2018 CRL: 2.5 cm FHR: 173 beats per minute. SUBCHORIONIC BLEED: No. SIZE OF BLEED: Not applicable. UTERUS: No masses. No anomalies. CERVICAL LENGTH: 2.8 cm. Closed. RIGHT ADNEXA: Ovary not identified. No adnexal free fluid. No adnexal masses. LEFT ADNEXA: Ovary not identified. No adnexal free fluid. No adnexal masses. FREE FLUID: None. OTHER: No other significant finding. IMPRESSION: LIVING INTRAUTERINE . EGA 9 weeks 1 day. Trimester of : First - 0 to 13 weeks. TECHNICAL DOCUMENTATION: JOB ID: [id number] [employer]- All Rights Reserved Reading location - IP/workstation name: [email or web address]
== END ==
LOC: RAD 19:14
PROVIDERS: ATTEND Nurse Practitioner
DX: Z34.81 Encounter for supervision of other normal pregnancy, first trimester (principal)
CPT/HCPCS: 76801

== ENCOUNTER → 2018-05-07 | Outpatient (CLI) | payer MEDICAID ==
--- NOTE | 2018-05-07 15:57 | RADIOLOGY REPORT (SQ) ---
EXAM DESCRIPTION: U/S OB 14+ TRNABD 1GES W/O DOP COMPLETED DATE/TIME: 05/07/2018 3:43 pm REASON FOR STUDY: ENCOUNTER FOR SUPERVISION OF OTHER NORMAL , SECOND TRIMESTER Z34.82 ENCO UNTER FOR SUPRVSN OF NORMAL , SECOND TRI COMPARISON: None. TECHNIQUE: Static and Dynamic grayscale imaging performed of gravid uterus using transabdominal appr oach. Additional selected color Doppler and spectral images recorded. All stored on PACS. LIMITATIONS: None. FINDINGS: FETUSES SEEN:1 EGA: 25 week 3 day. Calculated using BPD,FL,HC,AC documented on images. No discrepancy with clinical dates. CHEYANNE: 08/17/2018. TANI: 15.9 cm. PLACENTA: Anterior. GRADE: I PRESENTATION: Cephalic. ANATOMY: HEART RATE: 132 beats per minute. FOUR CHAMBER HEART: Visualized. THREE VESSEL CORD: Yes. CORD INSERTION: Visualized. KIDNEYS AND BLADDER: Visualized. Appear normal. STOMACH: Visualized. Appears normal. SPINE: Normal as visualized. BRAIN AND LATERAL VENTRICLES: Visualized. Appear normal. OTHER: No other significant finding. MATERNAL ADNEXA: Maternal ovaries not visualized. CERVICAL LENGTH: 4.8 cm. Closed. OTHER: No other significant finding. IMPRESSION: LIVING INTRAUTERINE . ESTIMATED GESTATIONAL AGE 25 week 3 day. NO VISUALIZED ANOMALIES. Trimester of : Second trimester - 13 weeks 1 day to 27 weeks 6 days. TECHNICAL DOCUMENTATION: JOB ID: [id number] [employer]- All Rights Reserved Reading location - IP/workstation name: [email or web address]
== END ==
LOC: RAD 14:28
PROVIDERS: ATTEND Nurse Practitioner
DX: Z34.82 Encounter for supervision of other normal pregnancy, second trimester (principal)
CPT/HCPCS: 76805

== ENCOUNTER 2018-07-31 09:58 | Outpatient (CLI) | payer MEDICAID ==
[2018-07-31 10:47] LABS: APPEARANCE,URINE CLOUDY; BILIRUBIN,URINE NEGATIVE (NEGATIVE); COLOR,URINE YELLOW; GLUCOSE, URINE NEGATIVE (NEGATIVE); KETONES,URINE 20 mg/dL (NEGATIVE); LEUKOCYTE ESTERASE,URINE NEGATIVE (NEGATIVE); NITRITE,URINE NEGATIVE (NEGATIVE); PROTEIN,URINE NEGATIVE (NEGATIVE); URINE SPECIFIC GRAVITY 1.013; UROBILINOGEN,URINE NEGATIVE mg/dL (<2.0)
--- NOTE | 2018-07-31 11:10 | Non Stress Test Report ---
Non Stress Test Datetime Report Generated by CPN: 07/31/2018 11:09 DEMOGRAPHIC EGA NST: 37.1 INDICATION Indication for Study: Ordered by Provider; Other VITAL SIGNS Temperature - NST: 98.1 Pulse - NST: 88 RESP - NST: 17 NBPSYS NST: 119 NBPDIA NST: 59 MONITORING Monitor Explained: Monitor Explained; Test Explained; Patient Verbalized Understanding Time on Monitor: 07/31/2018 10:15 Time off Monitor: 07/31/2018 10:56 NST Duration: 41 NST INTERVENTIONS NST Interventions: PO Hydration Physician Notified NST: Dr Boykin BABY A: [id number] BABY A Movement : Present Contraction Frequency : irregular FHR Baseline : 140 Accelerations : 15X15 Decelerations : None Variability : Moderate 6-25bpm NST Review: Meets Criteria for Reactive NST NST Review and Verified By : Luis Nickerson RN NST Results: Reactive NST REPORT Report Trigger: Send Report
[2018-07-31 11:19] LABS: URINE AMPHETAMINES SCREEN NEGATIVE; URINE BARBITURATES SCREEN NEGATIVE; URINE COCAINE SCREEN NEGATIVE; URINE METHADONE SCREEN NEGATIVE; URINE PHENCYCLIDINE SCREEN NEGATIVE
[2018-07-31 11:22] LABS: URINE BENZODIAZEPINES SCREEN UNCONFIRMED POSITIVE; URINE MARIJUANA (THC) SCREEN UNCONFIRMED POSITIVE
== END 2018-07-31 11:03 | disposition home or self-care (01) ==
LOC: LC 09:58
PROVIDERS: ATTEND Obstetrics & Gynecology Gynecology
DX: O36.8390 Maternal care for abnormalities of the fetal heart rate or rhythm, unspecified trimester, not applicable or unspecified (principal); O99.333 Smoking (tobacco) complicating pregnancy, third trimester; F17.210 Nicotine dependence, cigarettes, uncomplicated; O99.323 Drug use complicating pregnancy, third trimester; F12.90 Cannabis use, unspecified, uncomplicated; Z3A.37 37 weeks gestation of pregnancy
CPT/HCPCS: 59025; 80307; 81001

== ENCOUNTER 2018-08-15 01:26 | Inpatient (IN) | payer MEDICAID ==
[2018-08-15] MEDS ORDERED: MAG HYDROX/AL HYDROX/SIMETH SUSP 30 ML UDCUP ONE (02:10)
[2018-08-15 02:14] LABS: APPEARANCE,URINE TURBID; BILIRUBIN,URINE NEGATIVE (NEGATIVE); COLOR,URINE YELLOW; GLUCOSE, URINE NEGATIVE (NEGATIVE); KETONES,URINE NEGATIVE (NEGATIVE); LEUKOCYTE ESTERASE,URINE NEGATIVE (NEGATIVE); NITRITE,URINE NEGATIVE (NEGATIVE); PROTEIN,URINE NEGATIVE (NEGATIVE); URINE SPECIFIC GRAVITY 1.014; UROBILINOGEN,URINE NEGATIVE mg/dL (<2.0)
[2018-08-15 02:43] LABS: URINE AMPHETAMINES SCREEN NEGATIVE; URINE BARBITURATES SCREEN NEGATIVE; URINE BENZODIAZEPINES SCREEN NEGATIVE; URINE COCAINE SCREEN NEGATIVE; URINE MARIJUANA (THC) SCREEN NEGATIVE; URINE METHADONE SCREEN NEGATIVE; URINE PHENCYCLIDINE SCREEN NEGATIVE
[2018-08-15] MEDS ORDERED: RINGERS SOLUTION,LACTATED 1,000 ML IV PRN ×2 (03:51→05:20)
[2018-08-15] MEDS ORDERED: CEFAZOLIN 2 GM/D5W RTU 2 GM/50 ML RTUPB IV ONE (04:14)
[2018-08-15] MEDS ORDERED: CITRIC ACID/SODIUM CITRATE ORAL SOLN 15 ML UDCUP ONE (04:14)
[2018-08-15] MEDS ORDERED: EPHEDRINE SULFATE INJ 50 MG/1 ML AMPULE ONE (04:15)
[2018-08-15] MEDS ORDERED: BUPIVACAINE HCL 0.25 % INJ/PF (2.5 MG/1 ML) 30 ML VIAL ONE (04:16)
[2018-08-15] MEDS ORDERED: FENTANYL/BUPIVACAINE/NS/PF 300 MCG/150 ML RTUINJ EPI ONE (04:16)
[2018-08-15 04:36] LABS: HEMATOCRIT 36.7 % (36.0-47.0); HEMOGLOBIN 12.8 g/dL (12.0-15.5); MEAN CORPUSCULAR HEMOGLOBIN 31.1 pg (27.0-33.4); MEAN CORPUSCULAR HGB CONC 34.9 g/dL (32.0-36.0); MEAN CORPUSCULAR VOLUME 89 fl (80-97); PLATELET COUNT 277 10^3/uL (150-450); RED BLOOD COUNT 4.11 10^6/uL (3.72-5.28); RED CELL DISTRIBUTION WIDTH 13.1 % (11.5-14.0); WHITE BLOOD COUNT 22.8 10^3/uL (4.0-10.5)
[2018-08-15] MEDS ORDERED: OXYTOCIN 10 UNIT/ML VIAL ONE (04:46)
[2018-08-15] MEDS ORDERED: LIDOCAINE 1% INJ-PF (10 MG/ML) 30 ML SDV ONE (04:46)
[2018-08-15] MEDS ORDERED: PENICILLIN G-K 5 MILLION UNIT VIAL ONE (04:46)
[2018-08-15] MEDS ORDERED: MISOPROSTOL 0.2 MG TABLET ONE ×2 (04:46→16:08)
[2018-08-15] MEDS ORDERED: OXYTOCIN/NORMAL SALINE 20 UNIT/1,000 ML RTUINJ ONE (04:47)
[2018-08-15 04:50] LABS: ABSOLUTE LYMPHOCYTES# (MANUAL) 1.6 10^3/uL (0.5-4.7); ABSOLUTE MONOCYTES # (MANUAL) 0.7 10^3/uL (0.1-1.4); ABSOLUTE NEUTROPHILS# (MANUAL) 20.5 10^3/uL (1.7-8.2); BASOPHILS % (MANUAL) 0 % (0-2); EOSINOPHILS % (MANUAL) 0 % (0-6); HYPOCHROMASIA SLIGHT; LYMPHOCYTES % (MANUAL) 7 % (13-45); MONOCYTES % (MANUAL) 3 % (3-13); PLATELET COMMENT ADEQUATE; POLYCHROMASIA SLIGHT; SEGMENTED NEUTROPHILS % (MAN) 90 % (42-78); TOTAL CELLS COUNTED 100
[2018-08-15] MEDS ORDERED: RINGERS SOLUTION,LACTATED 300 ML IV ONE (05:20)
[2018-08-15] MEDS ORDERED: OXYTOCIN/NORMAL SALINE 20 UNIT/1,000 ML RTUINJ IV PRN ×2 (05:20→07:00)
[2018-08-15] MEDS ORDERED: PROMETHAZINE HCL 25 MG SUPP.RECT PR PRN (07:00)
[2018-08-15] MEDS ORDERED: ACETAMINOPHEN 650 MG SUPP.RECT PR PRN (07:00)
[2018-08-15] MEDS ORDERED: PROMETHAZINE HCL INJ 25 MG/1 ML VIAL IV PRN (07:00)
[2018-08-15] MEDS ORDERED: MEASLES,MUMPS&RUBELLA VACC/PF 0.5 ML VIAL SUBCUT PRN (07:00)
[2018-08-15] MEDS ORDERED: ZOLPIDEM TARTRATE 5 MG TABLET PO PRN (07:00)
[2018-08-15] MEDS ORDERED: PSEUDOEPHEDRINE HCL 30 MG TABLET PO PRN (07:00)
[2018-08-15] MEDS ORDERED: GLYCERIN/WITCH HAZEL LEAF 1 EACH MED..PAD TP PRN (07:00)
[2018-08-15] MEDS ORDERED: DIPH/PERTUSS(ACELL)/TETANUS VAC/PF 0.5 ML SYR (>=10YO) IM PRN (07:00)
[2018-08-15] MEDS ORDERED: MAGNESIUM HYDROXIDE SUSP 30 ML UDCUP PO PRN (07:00)
[2018-08-15] MEDS ORDERED: PROMETHAZINE HCL 25 MG TABLET PO PRN (07:00)
[2018-08-15] MEDS ORDERED: BENZOCAINE/MENTHOL AEROSOL SPRAY 56 ML TOP PRN (07:00)
[2018-08-15] MEDS ORDERED: DIPHENHYDRAMINE HCL 25 MG CAPSULE PO PRN (07:00)
[2018-08-15] MEDS ORDERED: NA PHOS,M-B/NA PHOS,DI-BA (ADULT) 133 ML ENEMA PR PRN (07:00)
--- NOTE | 2018-08-15 07:04 | Admission Physical ---
Datetime Report Generated by CPN: 08/15/2018 07:04 CURRENT ADMISSION Chief Complaint: Uterine Contractions Indication for Induction: Not Applicable Admit Impression : Term, Intrauterine Admit Plan: Initiate Labor Protocol ALLERGIES Medication Allergies: No Medication Allergies: No Known Allergies (07/31/2018) Latex: No Latex Allergies OBSTETRICAL HISTORY EDC: 08/20/2018 00:00 : 3 Para: 1 Term: 1 : 0 SAB: 0 IAB: 0 Ectopic: 0 Livin Cesareans: 1 VBACs: 0 Multiple Births: 0 Gestational Diabetes: No Rh Sensitization: No Incompetent Cervix: No KIKI: No Infertility: No ART Treatment: No Uterine Anomaly: No IUGR: No Hx Previous C/S: Yes Macrosomia: No Hx Loss/Stillborn: No PIH: No Hx : No Placenta Previa/Abruption: No Depression/PP Depression: No PTL/PROM: No Post Hemorrhage: No Current Procedures: Ultrasound; NST Obstetrical History Comments: G1: 2011 c/s for failure to progress 7lb 14 oz male G2: EAB G3: current SEE RECORDS Alcohol: No Marijuana : Yes Marijuana Frequency: Occasional Previous Treatment: Inpatient Treatment Marijuana Comments: [id number] Cocaine: No Other Illicit Drugs: Yes 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 [id number] Cigarette Frequency: > 10 per day Advised to Stop: Yes Cigarette Comments: 1/2 to 1 pack daily MEDICAL HISTORY Diabetes: No Blood Transfusion: No Pulmonary Disease (Asthma, TB): No Breast Disease: No Hypertension: No Director Of Archives Surgery: No Heart Disease: No Hosp/Surgery: No Autoimmune Disorder: No Anesthetic Complications: No Kidney Disease: No Abnormal Pap Smear: No Neuro/Epilepsy: No Psychiatric Disorders: No Other Medical Diseases: No Hepatitis/Liver Disease: No Significant Family History: No Varicosities/Phlebitis: No Trauma/Violence : No Thyroid Dysfunction: No INFECTIOUS HISTORY Gonorrhea: Yes Genital Herpes: No Chlamydia: No Tuberculosis: No Syphilis: No Hepatitis: Yes HIV/AIDS Exposure: No Rash or Viral Illness: No HPV: No Infectious History Comments: gonorrhea 2018 treat to cure PHYSICAL EXAM General: Normal HEENT: Normal Neurologic: Normal Thyroid: Normal Heart: Normal Lungs: Normal Breast: Deferred Back: Normal Abdomen: Normal Genitourinary Exam: Normal Extremities: Normal DTRs: Normal Pelvic Type: Adequate FETUS A EGA: 39.2 Monitoring: External US PLANS FOR LABOR AND DELIVERY Labor and Delivery: None Pain Management: Spinal Feeding Preference: Breast Benefit of Breast Feed Discussed: Yes Circumcision: N/A INFORMED CONSENT Signature: with User ID: [email or web address]
[2018-08-15] MEDS ORDERED: BENZOCAINE/MENTHOL AEROSOL SPRAY 56 ML ONE (07:36)
[2018-08-15] MEDS ORDERED: IBUPROFEN 800 MG TABLET ONE (07:36)
[2018-08-15] MEDS: FAMOTIDINE 20 MG TABLET PO SCH ×2 (09:16→22:49)
[2018-08-15] MEDS: FERROUS SULFATE 325 MG TABLET PO SCH ×2 (09:16→22:59)
[2018-08-15] MEDS: SENNOSIDES/DOCUSATE 8.6-50 MG 1 EACH TABLET PO SCH (09:16)
[2018-08-15] MEDS: DOCUSATE SODIUM 100 MG CAPSULE PO SCH ×2 (09:16→22:59)
[2018-08-15] MEDS: PRENATAL VITAMIN W DHA CAPSULE PO SCH (09:17)
[2018-08-15] MEDS: ACETAMINOPHEN WITH CODEINE #3 TABLET PO PRN (09:39)
[2018-08-15] MEDS: IBUPROFEN 800 MG TABLET PO SCH ×2 (13:03→22:00)
[2018-08-15] MEDS ORDERED: OXYCODONE-ACETAMINOPHEN 5-325 MG TABLET ONE (16:07)
[2018-08-15] MEDS: DIBUCAINE 1% OINTMENT 56 GM TP PRN (16:17)
[2018-08-15] MEDS ORDERED: OXYCODONE-ACETAMINOPHEN 5-325 MG TABLET PO ONE (22:00)
[2018-08-15] MEDS ORDERED: MISOPROSTOL 0.2 MG TABLET PR ONE (22:00)
[2018-08-16] MEDS: ACETAMINOPHEN WITH CODEINE #3 TABLET PO PRN ×2 (05:14→09:24)
[2018-08-16 06:49] LABS: ABSOLUTE BASOPHILS # (AUTO) 0.1 10^3/uL (0.0-0.2); ABSOLUTE EOSINOPHILS # (AUTO) 0.1 10^3/uL (0.0-0.6); ABSOLUTE MONOCYTES (AUTO) 0.9 10^3/uL (0.1-1.4); ABSOLUTE NEUT (AUTO) 11.3 10^3/uL (1.7-8.2); BASOPHILS % (AUTO) 0.6 % (0-2); EOSINOPHILS % (AUTO) 0.5 % (0-6); LYMPHOCYTES % (AUTO) 19.5 % (13-45); MEAN CORPUSCULAR HEMOGLOBIN 31.4 pg (27.0-33.4); MEAN CORPUSCULAR HGB CONC 34.3 g/dL (32.0-36.0); MEAN CORPUSCULAR VOLUME 92 fl (80-97); MONOCYTES % (AUTO) 5.9 % (3-13); PLATELET COUNT 216 10^3/uL (150-450); RED BLOOD COUNT 2.73 10^6/uL (3.72-5.28); RED CELL DISTRIBUTION WIDTH 13.3 % (11.5-14.0); SEGMENTED NEUTROPHILS % (AUTO) 73.5 % (42-78); TOTAL CELLS COUNTED % (AUTO) 100 %; WHITE BLOOD COUNT 15.4 10^3/uL (4.0-10.5)
[2018-08-16 06:52] LABS: HEMOGLOBIN 8.6 g/dL (12.0-15.5)
[2018-08-16] MEDS ORDERED: LIDOCAINE 2% JELLY 5 ML TUBE ONE (07:28)
--- NOTE | 2018-08-16 08:38 | PDOC PROGRESS REPORT ---
Subjective Progress Note for:: 08/16/18 Reason For Visit: Physical Exam - Physical Exam Vital Signs: Temp Pulse Resp BP Pulse Ox 98.4 F 71 18 120/71 100 08/16/18 00:36 08/16/18 00:36 08/16/18 00:36 08/16/18 00:36 08/16/18 00:36 Intake & Output 08/15/18 08/16/18 08/17/18 06:59 06:59 06:59 Weight 69.9 kg - Gynecological Exam Labia: other - clitoral wheatley with linear tear that was trickling bright red; left labia minora with separation and bleeding from denuded surface. Separation of labia minora tracks to the labia Result Laboratory Results: 08/16/18 06:14 08/16/18 06:14 WBC 15.4 H RBC 2.73 L Hgb 8.6 L D Hct 25.0 L MCV 92 MCH 31.4 MCHC 34.3 RDW 13.3 Plt Count 216 Seg Neutrophils % 73.5 Lymphocytes % 19.5 Monocytes % 5.9 Eosinophils % 0.5 Basophils % 0.6 Absolute Neutrophils 11.3 H Absolute Lymphocytes 3.0 Absolute Monocytes 0.9 Absolute Eosinophils 0.1 Absolute Basophils 0.1 Assessment & Plan - Diagnosis (1) Obstetric labial laceration, delivered, current hospitalization Is this a current diagnosis for this admission?: Yes Plan: Silver nitrate applied to clitoral wheatley to stop oozing, topical lidocaine jelly used for pain control. Offered patient to repair left labial laceration that was bleeding for future cosmesis. Pt was not interested as she was very uncomfortable with multiple exams and changing pads second to the bleeding and hematoma that was apparently resolving well. Lidocaine jelly applied to left labia minora separation. Surgicel applied to left labial separation with pressure from folded 4x4. Hemostasis was good at the end of the intervention. Cold pack placed on patients vulvar/perineal area.
[2018-08-16] MEDS: IBUPROFEN 800 MG TABLET PO SCH ×3 (09:30→21:38)
[2018-08-16] MEDS ORDERED: OXYCODONE-ACETAMINOPHEN 5-325 MG TABLET PO PRN (09:56)
[2018-08-16] MEDS: OXYCODONE-ACETAMINOPHEN 5-325 MG TABLET PO PRN ×3 (10:14→20:57)
[2018-08-16] MEDS: SENNOSIDES/DOCUSATE 8.6-50 MG 1 EACH TABLET PO SCH (10:15)
[2018-08-16] MEDS: FERROUS SULFATE 325 MG TABLET PO SCH ×2 (10:15→17:51)
[2018-08-16] MEDS: PRENATAL VITAMIN W DHA CAPSULE PO SCH (10:15)
[2018-08-16] MEDS: FAMOTIDINE 20 MG TABLET PO SCH ×2 (10:16→21:37)
[2018-08-16] MEDS: DOCUSATE SODIUM 100 MG CAPSULE PO SCH ×2 (10:16→17:51)
--- NOTE | 2018-08-16 11:35 | PDOC PROGRESS REPORT ---
Subjective-OB Progress Note for:: 08/16/18 Subjective: Pt ambulatory. Reports decreased bleeding, since procedure by Dr. Caputo this am. She does c/o body aches, no chills or fever. Regular diet and voidng without difficulty. Physical Exam (OB) Vital Signs: Temp Pulse Resp BP Pulse Ox 98.0 F 80 20 131/87 H 98 08/16/18 08:05 08/16/18 08:05 08/16/18 08:05 08/16/18 08:05 08/16/18 08:05 Intake & Output 08/15/18 08/16/18 08/17/18 06:59 06:59 06:59 Weight 69.9 kg - PIH/Pre-Eclampsia DTR's: 1 + Clonus: Negative Headache: Absent Epigastric Pain: No Visual Changes: No - Lochia Lochia Amount: Scant < 10 ml Lochia Color: Rubra/Red - Abdomen Description: Tender, Soft Hernia Present: No Fundal Description: Firm, Midline Fundal Height: u/u - u/2 - Genitourinary Female External exam: Laceration, Bruising, Other - hematoma, edema is improved since my exam yesterday at [address] Bunch Objective-Diagnostic Laboratory: 08/16/18 06:14 08/16/18 06:14 WBC 15.4 H RBC 2.73 L Hgb 8.6 L D Hct 25.0 L MCV 92 MCH 31.4 MCHC 34.3 RDW 13.3 Plt Count 216 Seg Neutrophils % 73.5 Lymphocytes % 19.5 Monocytes % 5.9 Eosinophils % 0.5 Basophils % 0.6 Absolute Neutrophils 11.3 H Absolute Lymphocytes 3.0 Absolute Monocytes 0.9 Absolute Eosinophils 0.1 Absolute Basophils 0.1 Assessment and Plan(PN) - Assessment and Plan (1) Hematoma of labia majora Is this a current diagnosis for this admission?: Yes (2) Obstetric labial laceration, delivered, current hospitalization Is this a current diagnosis for this admission?: Yes (3) Vaginal delivery Is this a current diagnosis for this admission?: Yes - Time Spent with Patient Time with patient: Less than 15 minutes Medications reviewed and adjusted accordingly: Yes - Disposition Anticipated Discharge: Home Within: within 24 hours
[2018-08-17] MEDS: OXYCODONE-ACETAMINOPHEN 5-325 MG TABLET PO PRN ×3 (02:04→13:28)
[2018-08-17] MEDS: IBUPROFEN 800 MG TABLET PO SCH ×2 (05:46→13:27)
[2018-08-17 08:04] LABS: ABSOLUTE BASOPHILS # (AUTO) 0.1 10^3/uL (0.0-0.2); ABSOLUTE EOSINOPHILS # (AUTO) 0.2 10^3/uL (0.0-0.6); ABSOLUTE LYMPHOCYTES (AUTO) 2.6 10^3/uL (0.5-4.7); ABSOLUTE MONOCYTES (AUTO) 0.6 10^3/uL (0.1-1.4); ABSOLUTE NEUT (AUTO) 7.9 10^3/uL (1.7-8.2); BASOPHILS % (AUTO) 0.5 % (0-2); EOSINOPHILS % (AUTO) 1.5 % (0-6); HEMATOCRIT 22.7 % (36.0-47.0); LYMPHOCYTES % (AUTO) 22.8 % (13-45); MEAN CORPUSCULAR HEMOGLOBIN 31.9 pg (27.0-33.4); MEAN CORPUSCULAR HGB CONC 35.2 g/dL (32.0-36.0); MEAN CORPUSCULAR VOLUME 91 fl (80-97); MONOCYTES % (AUTO) 5.7 % (3-13); PLATELET COUNT 224 10^3/uL (150-450); RED CELL DISTRIBUTION WIDTH 13.5 % (11.5-14.0); SEGMENTED NEUTROPHILS % (AUTO) 69.5 % (42-78); TOTAL CELLS COUNTED % (AUTO) 100 %; WHITE BLOOD COUNT 11.4 10^3/uL (4.0-10.5)
[2018-08-17 09:01] VITALS: BP 130/75
[2018-08-17] MEDS: PRENATAL VITAMIN W DHA CAPSULE PO SCH (10:17)
[2018-08-17] MEDS: FAMOTIDINE 20 MG TABLET PO SCH (10:17)
[2018-08-17] MEDS: DOCUSATE SODIUM 100 MG CAPSULE PO SCH (10:18)
[2018-08-17] MEDS: SENNOSIDES/DOCUSATE 8.6-50 MG 1 EACH TABLET PO SCH (10:18)
[2018-08-17] MEDS: FERROUS SULFATE 325 MG TABLET PO SCH (10:18)
[2018-08-17] MEDS: DIBUCAINE 1% OINTMENT 56 GM TP PRN (13:49)
--- NOTE | 2018-08-21 13:09 | Delivery Summary ---
Del Sum A-C Datetime Report Generated by CPN: 08/21/2018 13:08 DELIVERY PERSONNEL DELIVERY PERSONNEL: [id number] Delivery Doctor:: Tahir Boykin MD Labor and Delivery Nurse:: Khadra Gomez RN Nursery Nurse:: Socorro Mendelines, RN Director Of Intelligence/MARKETING OPERATIONS INTERN: Lee Ann Green, ST MATERNAL INFORMATION Delivery Anesthesia: Epidural Medications After Delivery: Pitocin Drip 20 Units/1000ml NSS Maternal Complications: None Provider Comments: nuchal cord x 1 LABOR SUMMARY EDC: 08/20/2018 00:00 No. Babies in Womb: 1 Attempted: Yes Labor Anesthesia: Epidural LABOR INFORMATION Reason for Induction: Not Applicable Onset of Labor: 08/15/2018 04:00 Complete Dilatation: 08/15/2018 06:08 Oxytocin: N/A Group B Beta Strep: positive Antibiotics # of Doses: 1 Antibiotics Time of Last Dose: 0450 Name of Antibiotic Given: penicillin Steroids Given: None Reason Steroids Not Administered: Not Applicable MEMBRANES Membranes Rupture Method: Spontaneous Rupture of Membranes: 08/15/2018 06:24 Length of Rupture (hr): 0.45 Amniotic Fluid Color: Moderate Meconium Amniotic Fluid Amount: Moderate Amniotic Fluid Odor: Normal STAGES OF LABOR Stage 1 hr: 2 Stage 1 min: 8 Stage 2 hr: 0 Stage 2 min: 43 Stage 3 hr: 0 Stage 3 min: 14 Total Time in Labor hr: 3 Total Time in Labor min: 5 VAGINAL DELIVERY Episiotomy: None Laceration #1: None Laceration Extension #1: N/A Laceration Repair: Not Applicable Sponge Count Correct: N/A Sharps Count Correct: N/A CSECTION DELIVERY Primary Indication: N/A Secondary Indication: N/A CSection Incidence: N/A Labor: N/A Elective: N/A CSection Incision: N/A BABY A INFORMATION Infant Delivery Date/Time: 08/15/2018 06:51 Method of Delivery: Vaginal Method of Delivery: Vaginal Born in Route : No : Successful Forceps: N/A Vacuum Extraction: N/A Shoulder Dystocia : No PRESENTATION/POSITION BABY A Presentation: Cephalic Cephalic Presentation: Vertex Vertex Position: Right Occipital Anterior Breech Presentation: N/A PLACENTA INFORMATION BABY A Placenta Delivery Time : 08/15/2018 07:05 Placenta Method of Delivery: Spontaneous Placenta Status: Delivered SCORES BABY A Heart Rate 1 min: >100 bpm Resp Effort 1 min: Slow, Irregular Reflex Irritability 1 min: Cough or Sneeze or Pulls Away Muscle Tone 1 min: Some Flexion of Extremities Color 1 min: Body Bandon, Extremities Blue Resuscitation Effort 1 min: Tactile Stimulation SCORE 1 MIN: 7 Heart Rate 5 min: >100 bpm Resp Effort 5 min: Good Cry Reflex Irritability 5 min: Cough or Sneeze or Pulls Away Muscle Tone 5 min: Active Motion Color 5 min: Body Bandon, Extremities Blue SCORE 5 MIN: 9 INFANT INFORMATION BABY A Gestational Age at Delivery: 39.2 Gestational Status: Full Term- 39- 40.6 Weeks Infant Outcome : Liveborn Condition : Stable Sex: Female Sex: Female IDENTIFICATION BABY A Infant Verification Date/Time: 08/15/2018 07:13 ID Band Number: [id number] Mother's Name Verified: Yes RN Verifying Infant: Baudilio Gomez RN Additional Verifying Personnel: SSpace Monkey ST WEIGHT/LENGTH BABY A Birthweight (gm): 3470 Infant Weight (lb): 7 Weight (oz): 10 Length (in): 20.00 Infant Length (cm): 50.80 CORD INFORMATION BABY A No. Cord Vessels: 3 Nuchal Cord : Around Neck x1, Tight Cord Blood Taken: Yes-For Storage (Mom's Blood type +) Suction: Mouth; Nose ASSESSMENT BABY A Skin to Skin: Yes Infant Care By: Socorro Danque, RN Transferred To: Nursery BABY B INFORMATION : N/A SIGNATURES Signature: with User ID: [email or web address]
== END 2018-08-17 13:55 | disposition home or self-care (01) | DRG 807 ==
LOC: LC 01:26 → LR 03:15 → 2S 09:06
PROVIDERS: ADMIT Obstetrics & Gynecology Gynecology; ATTEND Obstetrics & Gynecology Gynecology
PROC: 10E0XZZ Delivery of Products of Conception, External Approach (ICD-10-PCS; principal; 2018-08-15)
DX: O34.211 Maternal care for low transverse scar from previous cesarean delivery (principal); Z37.0 Single live birth; O99.334 Smoking (tobacco) complicating childbirth; O99.824 Streptococcus B carrier state complicating childbirth; N85.8 Other specified noninflammatory disorders of uterus; O77.0 Labor and delivery complicated by meconium in amniotic fluid; O69.1XX0 Labor and delivery complicated by cord around neck, with compression, not applicable or unspecified; F17.210 Nicotine dependence, cigarettes, uncomplicated; Z3A.39 39 weeks gestation of pregnancy
CPT/HCPCS: 36415; 80307; 81005; 85025; 86592; 86850; 86900; 86901; J0690; J2540; J2590; J3010; J3490

== ENCOUNTER 2018-11-10 22:46 | Emergency (ER) | payer MEDICAID ==
--- NOTE | 2018-11-11 06:47 | ER Document Report ---
ED Medical Screen (RME) - General Chief Complaint: Neck and Upper Back Pain Stated Complaint: SHOULDER INJURY Time Seen by Provider: 11/11/18 06:23 Primary Care Provider: MORENITA MEDEIROS MD [Primary Care Provider] - Follow up as needed TRAVEL OUTSIDE OF THE [place] IN LAST 30 DAYS: No - Related Data Allergies/Adverse Reactions: No Known Allergies Allergy (Verified 11/08/18 11:14) Past Medical History - Social History Frequency of alcohol use: None Drug Abuse: None Neurological Medical History: Reports: Hx Migraine. Denies: Hx Cerebrovascular Accident, Hx Seizures Endocrine Medical History: Denies: Hx Diabetes Mellitus Type 1, Hx Diabetes Mellitus Type 2 Renal/ Medical History: Reports: Hx Ovarian Cysts. Denies: Hx Peritoneal Dialysis GI Medical History: Reports: Hx Hepatitis - Hepatitis C Skin Medical History: Reports Hx Cellulitis, Reports Hx MRSA Psychiatric Medical History: Reports: Hx Anxiety, Hx Depression Infectious Medical History: Reports: Hx Hepatitis - Hepatitis C Past Surgical History: Reports: Hx Section - Immunizations Immunizations up to date: Yes Hx Diphtheria, Pertussis, Tetanus Vaccination: Yes Physical Exam - Vital signs Vitals: Temp Pulse Resp BP Pulse Ox 98.5 F 107 H 14 125/71 96 11/10/18 22:56 11/10/18 22:56 11/10/18 22:56 11/10/18 22:56 11/10/18 22:56 Course - Vital Signs Vital signs: Temp Pulse Resp BP Pulse Ox 98.5 F 107 H 14 125/71 96 11/10/18 22:56 11/10/18 22:56 11/10/18 22:56 11/10/18 22:56 11/10/18 22:56 Doctor's Discharge - Discharge Referrals: MORENITA MEDEIROS MD [Primary Care Provider] - Follow up as needed
[2018-11-11] MEDS ORDERED: GABAPENTIN 300 MG CAPSULE PO ONE (08:01)
--- NOTE | 2018-11-11 08:17 | ER Document Report ---
ED General - General Chief Complaint: Neck and Upper Back Pain Stated Complaint: SHOULDER INJURY Time Seen by Provider: 11/11/18 06:23 Primary Care Provider: MORENITA MEDEIROS MD [Primary Care Provider] - Follow up as needed TRAVEL OUTSIDE OF THE [place] IN LAST 30 DAYS: No - Related Data Allergies/Adverse Reactions: No Known Allergies Allergy (Verified 11/08/18 11:14) Past Medical History - Social History Smoking Status: Unknown if Ever Smoked Frequency of alcohol use: None Drug Abuse: None Family History: Malignancy Patient has suicidal ideation: No Patient has homicidal ideation: No Neurological Medical History: Reports: Hx Migraine. Denies: Hx Cerebrovascular Accident, Hx Seizures Endocrine Medical History: Denies: Hx Diabetes Mellitus Type 1, Hx Diabetes Mellitus Type 2 Renal/ Medical History: Reports: Hx Ovarian Cysts. Denies: Hx Peritoneal Dialysis GI Medical History: Reports: Hx Hepatitis - Hepatitis C Skin Medical History: Reports Hx Cellulitis, Reports Hx MRSA Psychiatric Medical History: Reports: Hx Anxiety, Hx Depression Infectious Medical History: Reports: Hx Hepatitis - Hepatitis C Past Surgical History: Reports: Hx Section - Immunizations Immunizations up to date: Yes Hx Diphtheria, Pertussis, Tetanus Vaccination: Yes Physical Exam - Vital signs Vitals: Temp Pulse Resp BP Pulse Ox 98.5 F 107 H 14 125/71 96 11/10/18 22:56 11/10/18 22:56 11/10/18 22:56 11/10/18 22:56 11/10/18 22:56 Course - Vital Signs Vital signs: Temp Pulse Resp BP Pulse Ox 98.5 F 107 H 14 125/71 96 11/10/18 22:56 11/10/18 22:56 11/10/18 22:56 11/10/18 22:56 11/10/18 22:56 Discharge - Discharge Referrals: MORENITA MEDEIROS MD [Primary Care Provider] - Follow up as needed
--- NOTE | 2018-11-11 08:21 | ER Document Report ---
Addendum entered and electronically signed by HILDA NARAYAN FNP 11/11/18 19:13: History of Present Illiness - HPI HPI: According to the patient's MRI that was done 2 days ago, she does have acute cord compression. She was transferred to [facility] for orthopedic coverage. States that she was "kicked out" of [facility] because the staff thought her mother was giving her medications or drugs. Original Note: ED General - General TRAVEL OUTSIDE OF THE [place] IN LAST 30 DAYS: No - General Chief Complaint: Neck and Upper Back Pain Stated Complaint: SHOULDER INJURY Time Seen by Provider: 11/11/18 06:23 Primary Care Provider: SERVANDO TATE MD [ASSOCIATE] - Follow up tomorrow (Follow up Tomorrow without fail -- follow up in the [facility] at [facility] [place][note 2][address] Phone number [phone]) MORENITA MEDEIROS MD [Primary Care Provider] - Follow up tomorrow Notes: Patient is a 28-year-old female presents emergency department with a chief complaint of left shoulder pain. She does have a herniated disc from the MRI done the other day. She was sent to [facility], but [facility] did not end up doing the surgery. Reports of left shoulder pain. (HILDA NARAYAN) - Related Data Allergies/Adverse Reactions: No Known Allergies Allergy (Verified 11/08/18 11:14) Past Medical History - Social History Smoking Status: Unknown if Ever Smoked Frequency of alcohol use: None Drug Abuse: None Family History: Malignancy Patient has suicidal ideation: No Patient has homicidal ideation: No Neurological Medical History: Reports: Hx Migraine. Denies: Hx Cerebrovascular Accident, Hx Seizures Endocrine Medical History: Denies: Hx Diabetes Mellitus Type 1, Hx Diabetes Mellitus Type 2 Renal/ Medical History: Reports: Hx Ovarian Cysts. Denies: Hx Peritoneal Dialysis GI Medical History: Reports: Hx Hepatitis - Hepatitis C Skin Medical History: Reports Hx Cellulitis, Reports Hx MRSA Psychiatric Medical History: Reports: Hx Anxiety, Hx Depression Infectious Medical History: Reports: Hx Hepatitis - Hepatitis C Past Surgical History: Reports: Hx Section - Immunizations Immunizations up to date: Yes Hx Diphtheria, Pertussis, Tetanus Vaccination: Yes Review of Systems - Review of Systems Notes: REVIEW OF SYSTEMS: CONSTITUTIONAL : Denies recent illness. Denies recent unintentional weight loss. Denies fever, chills, or sweats. EENT: Denies eye, ear, throat, or mouth pain, discharge, or symptoms. Denies nasal or sinus congestion. CARDIOVASCULAR: Denies chest pain. RESPIRATORY: Denies shortness of breath, cough, congestion, difficulty breat tuan, or wheezing. GASTROINTESTINAL: Denies nausea, vomiting, and diarrhea. Denies abdominal pain. Denies constipation. GENITOURINARY: Denies difficulty urinating, burning, blood in urine, urgency or frequency. MUSCULOSKELETAL: See HPI SKIN: Denies rash, itchiness, or lesions HEMATOLOGIC : Denies easy bruising or bleeding. LYMPHATIC: Denies swollen, painful, enlarged glands. NEUROLOGICAL: Denies no numbness or tingling denies weakness. Denies headache. Denies altered mental status. Denies alteration in speech. PSYCHIATRIC: Denies stress, anxiety, alteration in sleep patterns, or depression. All other systems reviewed and negative. (HILDA NARAYAN) Physical Exam - Vital signs Vitals: Temp Pulse Resp BP Pulse Ox 98.5 F 107 H 14 125/71 96 11/10/18 22:56 11/10/18 22:56 11/10/18 22:56 11/10/18 22:56 11/10/18 22:56 - Notes Notes: PHYSICAL EXAMINATION: GENERAL: Appears well, healthy, well-nourished, no acute distress. HEAD: Normocephalic, atraumatic. EYES: PERRL, conjunctiva normal, all extraocular movements intact, sclera nonicteric ENT: Moist mucous membranes. NECK: Supple, no noticeable swelling, redness, rash. Normal range of motion. LUNGS: Equal breath sounds bilaterally and clear to auscultation. No wheezes rales or rhonchi. CARDIOVASCULAR: S1-S2, regular rate, regular rhythm. Radial pulses 2+, normal. ABDOMEN: Normoactive bowel sounds. Soft, nontender, no guarding, no rebound tenderness, and no masses palpated. EXTREMITIES: Normal strength and range of motion, no pitting or edema. No cyanosis. NEUROLOGICAL: Moves all extremities upon command. Strength 5/5 in all extremities. PSYCH: Normal mood, normal affect. SKIN: Warm, dry. No rash, lesions, ulcerations noted. Normal skin turgor. (HILDA NARAYAN) Course - Re-evaluation Re-evalutation: 11/11/18 08:28 At this time, no additional imaging study will be done. The patient seems very comfortable for having a herniated disc. A urine drug screen will be done. Spoke with Dr. Michel, the orthopedic doctor certification and selection specialist. He will discuss her MRI results with his colleague. He will call back. Bedside report was given to BRONSON Chapin. (HILDA NARAYAN) - Vital Signs Vital signs: Temp Pulse Resp BP Pulse Ox 98.1 F 78 16 123/78 99 11/11/18 09:39 11/11/18 09:39 11/11/18 09:39 11/11/18 09:39 11/11/18 09:39 - Laboratory Laboratory results interpreted by me: 11/11/18 08:39 Urine Nitrite POSITIVE H Ur Leukocyte Esterase LARGE H - Transfer of Care Notes: 11/11/18 Received patient in turnover from MYKE Narayan. Plan to await return phone call from Dr. Michel whom Hilda called about patient's neck pain and shoulder pain from her herniated disc about follow up. Patient was at [facility] yesterday and was supposed to have a repair, but she left the hospital. Dr. Michel called back. His colleague Dr. Tate will see patient tomorrow in the office at [address] at 9:30 AM. Patient can call [phone]. Rounded with patient. Will plan on sending her home with muscle relaxants, small amount of pain meds, and steroid dose isauro. Patient agrees with the plan and with the plan for follow up. (CORRIE GRACIA) Discharge - Discharge Clinical Impression: Neck pain, Shoulder pain, left, Herniated disc, cervical Condition: Stable Disposition: HOME, SELF-CARE Instructions: Herniated Disc ([facility]) Additional Instructions: FOLLOW UP WITH DR. TATE, [facility] PICKER, WITHOUT FAIL TOMORROW, 11/12/18 AT 9:30 AM AT [address] [phone]. Return if worsening pain, fevers, chills, arm weakness, or any other concerns. Prescriptions: Cyclobenzaprine HCl [Flexeril 10 mg Tablet] 10 mg PO TID #10 tablet Methylprednisolone [Medrol Dosepack (4 mg/Tab) 21 Tab/Dosepak] 4 mg PO ASDIR PRN #21 tab.ds.pk PRN Reason: Oxycodone HCl/Acetaminophen [Percocet 5-325 mg Tablet] 2 tab PO Q6H PRN #8 tab PRN Reason: Referrals: MORENITA MEDEIROS MD [Primary Care Provider] - Follow up tomorrow SERVANDO TATE MD [ASSOCIATE] - Follow up tomorrow (Follow up Tomorrow without fail -- follow up in the [facility] Location at [address] Phone number [phone])
[2018-11-11 08:59] LABS: APPEARANCE,URINE CLOUDY; BILIRUBIN,URINE NEGATIVE (NEGATIVE); COLOR,URINE YELLOW; GLUCOSE, URINE NEGATIVE (NEGATIVE); KETONES,URINE NEGATIVE (NEGATIVE); LEUKOCYTE ESTERASE,URINE LARGE (NEGATIVE); NITRITE,URINE POSITIVE (NEGATIVE); PROTEIN,URINE NEGATIVE (NEGATIVE); URINE SPECIFIC GRAVITY 1.006; UROBILINOGEN,URINE NEGATIVE mg/dL (<2.0)
[2018-11-11 09:19] LABS: URINE AMPHETAMINES SCREEN NEGATIVE; URINE BARBITURATES SCREEN NEGATIVE; URINE BENZODIAZEPINES SCREEN UNCONFIRMED POSITIVE; URINE COCAINE SCREEN NEGATIVE; URINE MARIJUANA (THC) SCREEN UNCONFIRMED POSITIVE; URINE METHADONE SCREEN NEGATIVE; URINE PHENCYCLIDINE SCREEN NEGATIVE
[2018-11-11] MEDS ORDERED: OXYCODONE-ACETAMINOPHEN 5-325 MG TABLET PO ONE (09:25)
[2018-11-11] MEDS ORDERED: CYCLOBENZAPRINE HCL 10 MG TABLET PO ONE (09:26)
[2018-11-11 09:44] VITALS: BP 123/78
== END 2018-11-11 09:45 | disposition home or self-care (01) ==
LOC: ER 22:46
DX: M50.20 Other cervical disc displacement, unspecified cervical region (principal); M25.512 Pain in left shoulder; Z86.14 Personal history of Methicillin resistant Staphylococcus aureus infection
CPT/HCPCS: 99283; 81001; 80307; J3490 ×2

== ENCOUNTER 2018-11-13 23:33 | Emergency (ER) | payer MEDICAID ==
[2018-11-14 00:41] VITALS: BP 117/70
[2018-11-14] MEDS ORDERED: DEXAMETHASONE SOD PHOS INJ 10 MG/1 ML VIAL IM ONE (04:15)
[2018-11-14] MEDS ORDERED: LIDOCAINE 5% (700 MG) TRANSDERMAL ADH..PATCH TP ONE (04:16)
[2018-11-14] MEDS ORDERED: HYDROCODONE/ACETAMINOPHEN 5-325 MG (6 TAB/ER DISP) PO PRN (04:16)
--- NOTE | 2018-11-14 04:19 | ER Document Report ---
HPI - HPI Patient complains to provider of: neck and left arm pain Time Seen by Provider: 11/14/18 04:10 Pain Level: 5 Context: 28-year-old female presents to the emergency department with chief complaint of neck pain left arm pain. According to the patient, her MRI that was done 2 days ago showed that she does have acute cord compression. She was transferred to [facility] for orthopedic coverage. States that she was "kicked out" of [facility] because the staff thought her mother was giving her medications or drugs. She comes to the emergency department with similar complaints requesting pain medication. She said that she was given 8 oxycodone from her previous visit and that last 2 days. She said that she cannot take the pain. She has sensation but says she has a constant burning pain starts in her C-spine and radiates down into her left arm. Strength is intact. Sensation is intact. Denies fevers or chills, denies nausea or vomiting, denies shortness of breath or chest pain. No other complaints - REPRODUCTIVE Reproductive: DENIES: : Past Medical History - Social History Smoking Status: Unknown if Ever Smoked Family History: Malignancy Neurological Medical History: Reports: Hx Migraine. Denies: Hx Cerebrovascular Accident, Hx Seizures Endocrine Medical History: Denies: Hx Diabetes Mellitus Type 1, Hx Diabetes Mellitus Type 2 Renal/ Medical History: Reports: Hx Ovarian Cysts. Denies: Hx Peritoneal Dialysis GI Medical History: Reports: Hx Hepatitis - Hepatitis C Skin Medical History: Reports Hx Cellulitis, Reports Hx MRSA Psychiatric Medical History: Reports: Hx Anxiety, Hx Depression Infectious Medical History: Reports: Hx Hepatitis - Hepatitis C Past Surgical History: Reports: Hx Section - Immunizations Immunizations up to date: Yes Hx Diphtheria, Pertussis, Tetanus Vaccination: Yes Vertical Provider Document - CONSTITUTIONAL Notes: PHYSICAL EXAMINATION: Reviewed vital signs and charting by RN GENERAL: Alert, interacts well. No acute distress. HEAD: Normocephalic, atraumatic. EYES: Pupils equal and round. Extraocular movements intact. ENT: Oral mucosa moist, tongue midline. NECK: Acute tenderness to palpation over C4-C5 with radiculopathy down her left arm. EXTREMITIES: Moves all 4 extremities spontaneously. No edema, No cyanosis. PSYCH: Normal affect, normal mood. SKIN: Warm, dry, normal turgor. No rashes or lesions noted. - INFECTION CONTROL TRAVEL OUTSIDE OF THE [place] IN LAST 30 DAYS: No Course - Re-evaluation Re-evalutation: 11/14/18 04:22 Patient presents and acute pain. And patient is requesting pain medication. Patient was recently given Percocet and states that she wants more. I am concerned that the patient is improperly requesting pain medication at this time. She does have 4+/5 left hand account development specialist strength. Sensation is intact. I will give her Decadron 10 mg IM once, a Lidoderm patch, and a Novi dose pack. - Vital Signs Vital signs: Temp Pulse Resp BP Pulse Ox 98.0 F 105 H 20 117/70 98 11/14/18 00:40 11/14/18 00:40 11/14/18 00:40 11/14/18 00:40 11/14/18 00:40 Discharge - Discharge Clinical Impression: Neck pain, Shoulder pain, left Condition: Good Disposition: HOME, SELF-CARE Additional Instructions: You were seen in the emergency department this evening for her neck pain and left arm pain. It is important that you follow-up with orthopedics to get this injection. Medication is not going to fix this problem. Pain medication is not the solution either. Please return to the emergency department if you develop paralysis of your left arm, worsening weakness, fevers, acute shortness of breath or chest pain, or you have any other concerning symptoms. Referrals: MORENITA MEDEIROS MD [Primary Care Provider] - Follow up as needed
== END 2018-11-14 04:39 | disposition home or self-care (01) ==
LOC: ER 23:33
DX: M54.2 Cervicalgia (principal); M79.602 Pain in left arm
CPT/HCPCS: 99283; 96372; J3490; J1100

== ENCOUNTER 2018-11-20 08:09 | Emergency (ER) | payer MEDICAID ==
[2018-11-20] MEDS ORDERED: KETOROLAC TROMETHAMINE 60 MG/2 ML SDV IM ONE (09:56)
[2018-11-20] MEDS ORDERED: MORPHINE SULFATE 10 MG/ML INJ IM ONE (09:56)
--- NOTE | 2018-11-20 10:49 | ER Document Report ---
HPI - HPI Time Seen by Provider: 11/20/18 09:12 Pain Level: 3 Notes: Patient is a 28-year-old female presented to the emergency department with chief complaint of neck pain. Patient reports she was diagnosed recently with multiple disc herniations and cord compression. She states that that time which was approximately 2 weeks ago she was transferred to [facility] from our facility with plans to have surgery on her neck. Patient reports she "got scared and left without having surgery done". Since that time she has been seen back at our facility twice, has been referred to orthopedics. She reports she has seen Dr. Michel's office and they have referred her to both physical therapy and pain management. Patient reports the pain is unbearable at this time. She denies any bowel or bladder incontinence, denies any urinary retention. She does report some numbness and tingling down her left arm. - REPRODUCTIVE Reproductive: DENIES: : Past Medical History - General Information source: Patient - Social History Smoking Status: Current Every Day Smoker Chew tobacco use (# tins/day): No Frequency of alcohol use: None Drug Abuse: None Family History: Malignancy Patient has suicidal ideation: No Patient has homicidal ideation: No Neurological Medical History: Reports: Hx Migraine. Denies: Hx Cerebrovascular Accident, Hx Seizures Endocrine Medical History: Denies: Hx Diabetes Mellitus Type 1, Hx Diabetes Mellitus Type 2 Renal/ Medical History: Reports: Hx Ovarian Cysts. Denies: Hx Peritoneal Dialysis GI Medical History: Reports: Hx Hepatitis - Hepatitis C Skin Medical History: Reports Hx Cellulitis, Reports Hx MRSA Psychiatric Medical History: Reports: Hx Anxiety, Hx Depression Infectious Medical History: Reports: Hx Hepatitis - Hepatitis C Past Surgical History: Reports: Hx Section - Immunizations Immunizations up to date: Yes Hx Diphtheria, Pertussis, Tetanus Vaccination: Yes Vertical Provider Document - CONSTITUTIONAL Notes: PHYSICAL EXAMINATION: GENERAL: Well-appearing, well-nourished and in no acute distress. HEAD: Atraumatic, normocephalic. EYES: Pupils equal round extraocular movements intact, conjunctiva are normal. ENT: Nares patent NECK: Normal range of motion LUNGS: No respiratory distress Musculoskeletal: Normal range of motion to bilateral upper and lower extremities. Equal typewriter repairer strength bilaterally, limited range of motion to cervical spine due to pain. NEUROLOGICAL: Normal speech, normal gait. PSYCH: Normal mood, normal affect. SKIN: Warm, Dry, normal turgor, no rashes or lesions noted. - INFECTION CONTROL TRAVEL OUTSIDE OF THE [place] IN LAST 30 DAYS: No Course - Re-evaluation Re-evalutation: Patient's medical records were reviewed. She did have an MRI done here recently at [facility] that showed multiple cervical disc herniations with cord compression. She was transferred to [facility]. Records also show that she did follow-up with Dr. Michel. Patient denies any new trauma or new symptoms. She is here mainly because the pain is out of control. She states that she has an appointment in 4 days with pain management. Patient was researched in the [place] [employer] system. She has not had any recent prescriptions written for narcotics. She does have a history according to [facility] records of IV drug abuse although she currently denies this. She does appear to be in pain so I will write her a short prescription for oral morphine as this has proven to be well-tolerated and does not have the euphoric side effects as Vicodin and/or Percocet do. I did also explained to the patient that we would not be refilling any pain prescriptions for her in the future and that she would absolutely have to keep her appointments she has scheduled with pain management. Patient verbalized understanding and agreement with this plan. - Vital Signs Vital signs: Temp Pulse Resp BP Pulse Ox 97.7 F 98 16 132/85 H 98 11/20/18 08:14 11/20/18 08:14 11/20/18 08:14 11/20/18 08:14 11/20/18 08:14 Discharge - Discharge Clinical Impression: Cervical disc herniation, Neck pain Condition: Stable Disposition: HOME, SELF-CARE Additional Instructions: Please keep the appointment that orthopedics has set up for you for pain management. Keep all follow-up appointments with orthopedics. Please call orthopedics or your insurance company to see what is going on with your referral for physical therapy. Return to the emergency department with any new or worsening symptoms to include development of fever or weakness in your arms. We will not be able to fill any more prescriptions for you for controlled substances so it is imperative that you keep all of your appointments. Prescriptions: Methocarbamol [Robaxin 500 mg Tablet] 500 mg PO QID #20 tablet Morphine Sulfate [Morphine Ir 15 Mg Tablet] 15 mg PO Q6H PRN #12 tablet PRN Reason: Prednisone [Deltasone 10 mg Tablet] 10 mg PO ASDIR PRN #21 tablet PRN Reason: Referrals: MORENITA MEDEIROS MD [Primary Care Provider] - Follow up as needed
[2018-11-20 11:04] VITALS: BP 128/78
== END 2018-11-20 12:00 | disposition home or self-care (01) ==
LOC: ER 08:09
DX: M50.20 Other cervical disc displacement, unspecified cervical region (principal); F17.200 Nicotine dependence, unspecified, uncomplicated; Z86.19 Personal history of other infectious and parasitic diseases
CPT/HCPCS: 99283; J1885; J2270

== ENCOUNTER 2018-12-07 10:45 | Emergency (ER) | payer MEDICAID ==
[2018-12-07] MEDS ORDERED: HYDROMORPHONE HCL INJ/PF 2 MG/ML AMPULE IM ONE (11:36)
[2018-12-07] MEDS ORDERED: KETOROLAC TROMETHAMINE 60 MG/2 ML SDV IM ONE (11:36)
--- NOTE | 2018-12-07 11:42 | ER Document Report ---
HPI - HPI Time Seen by Provider: 12/07/18 11:18 Pain Level: 5 Notes: Patient is a 28-year-old female with a history of disc herniation with stenosis to her cervical spine and ongoing pain presents for pain management. Patient states that she has been seen recently by pain management this past week and had a EVELIO performed which did not help. She did contact her pain management provider who told her that she most likely will need surgery. Patient has already been seen by a neurosurgeon as well. She is scheduled for therapy on Saturday. Patient states that she was seen at another ER down in [place] a couple days ago and was placed on steroids as well as naproxen. Patient states that she is also on muscle relaxers and gabapentin at home. No new changes in her symptoms. Patient is crying and complaining of significant pain. Denies any headache, fever, head injury, changes in vision/speech/mentation/hearing, URI, sore throat, chest pain, palpitations, syncope, cough, shortness of breath, wheeze, dyspnea, abdominal pain, nausea/vomiting/diarrhea, urinary retention, dysuria, hematuria, loss of control of bowel or bladder, saddle anesthesia, muscle paralysis/weakness, or rash. - ROS Systems Reviewed and Negative: Yes All other systems reviewed and negative - REPRODUCTIVE Reproductive: DENIES: : Past Medical History - Social History Smoking Status: Unknown if Ever Smoked Family History: Malignancy Neurological Medical History: Reports: Hx Migraine. Denies: Hx Cerebrovascular Accident, Hx Seizures Endocrine Medical History: Denies: Hx Diabetes Mellitus Type 1, Hx Diabetes Mellitus Type 2 Renal/ Medical History: Reports: Hx Ovarian Cysts. Denies: Hx Peritoneal Dialysis GI Medical History: Reports: Hx Hepatitis - Hepatitis C Skin Medical History: Reports Hx Cellulitis, Reports Hx MRSA Psychiatric Medical History: Reports: Hx Anxiety, Hx Depression Infectious Medical History: Reports: Hx Hepatitis - Hepatitis C Past Surgical History: Reports: Hx Section - Immunizations Immunizations up to date: Yes Hx Diphtheria, Pertussis, Tetanus Vaccination: Yes Vertical Provider Document - CONSTITUTIONAL Agree With Documented VS: Yes Notes: PHYSICAL EXAMINATION: GENERAL: No acute resp distress. Tearful and holding her neck. HEAD: Atraumatic, normocephalic. EYES: Pupils equal round and reactive to light, extraocular movements intact, sclera anicteric, conjunctiva are normal. ENT: EAC clear b/l. TM's intact b/l without erythema, fluid, or perforation. Nares patent and without discharge. oropharynx clear without exudates. No tonsilar hypertrophy or erythema. Moist mucous membranes. No sinus tenderness. NECK: Normal range of motion, supple without lymphadenopathy. + mild tenderness to palp left c-paraspinal mm. Spurling negative. No obvious atrophy of UE muscles noted. N/V intact distal. LUNGS: Breath sounds clear to auscultation bilaterally and equal. No wheezes rales or rhonchi. HEART: Regular rate and rhythm without murmurs, rubs, gallops. Musculoskeletal: FROM to passive/active. Strength 5+/5. Extremities: No cyanosis, clubbing, or edema b/l. Peripheral pulses 2+. Capillary refill less than 3 seconds. NEUROLOGICAL: Cranial nerves grossly intact. Normal speech, normal gait. Normal sensory, motor exams PSYCH: Normal mood, normal affect. SKIN: Warm, Dry, normal turgor, no rashes or lesions noted. - INFECTION CONTROL TRAVEL OUTSIDE OF THE [place] IN LAST 30 DAYS: No Course - Re-evaluation Re-evalutation: 12/07/18 11:40 Patient is an afebrile, well-hydrated, 28-year-old female who presents to the ED with cervicalgia. Vitals are acceptable without any significant tachycardia, tachypnea, or hypoxia. PE is otherwise unremarkable for any neurovascular compromise, obvious tendon/ligament rupture, obvious fracture/dislocation, septic joint. Patient is nontoxic-appearing. No other labs or imaging warranted at this time based on H&P. Patient has multiple specialists and hand and had a recent EVELIO that appears to be unsuccessful. She was seen at another emergency department a couple days ago and was placed on redness own and naproxen. She does have muscle relaxers at home and is on gabapentin as well. I did recheck the [place] database and there has not been any new narcotic pain medicine prescribed recently. I did review most recent visit note and she was told at that time that she would not be sent home with another narcotic prescription which I am in agreement with. Toradol given IM today and she is to hold naproxen until tomorrow. I also gave her 1 injection of Dilaudid for pain, but she will not be sent home with a prescription for narcotics. Conservative measures otherwise for symptoms. Recheck with your PCM in 3-5 days. Speak with your specialist for further evaluation and management. Return to the ED with any worsening/concerning symptoms otherwise as reviewed in discharge. Patient is in agreement. - Vital Signs Vital signs: Temp Pulse Resp BP Pulse Ox 98.0 F 82 20 93/69 L 97 12/07/18 10:48 12/07/18 10:48 12/07/18 10:48 12/07/18 10:48 12/07/18 10:48 Discharge - Discharge Clinical Impression: Neck pain Condition: Stable Disposition: HOME, SELF-CARE Additional Instructions: Rest, Ice, Compression, Elevation Tylenol/ibuprofen as needed Light stretches daily Strength exercises as able Moist heat and massage may help F/u with your PCP in 3-5 days for a recheck Call and speak with your specialist for further guidance, treatment, and evaluation. Return to the ED with any worsening symptoms and/or development of fever, headache, changes in behavior/mentation/vision/speech, chest pain, palpitations, syncope, shortness of breath, trouble breathing, abdominal pain, n/v/d, blood in stool/urine, loss of control of bowel/bladder, urinary retention, muscle weakness/paralysis, saddle anesthesia, or other worsening symptoms that are concerning to you. Referrals: MORENITA MEDEIROS MD [Primary Care Provider] - Follow up as needed [facility] [Provider Group] - Follow up as needed
[2018-12-07 11:46] VITALS: BP 135/100
== END 2018-12-07 12:15 | disposition home or self-care (01) ==
LOC: ER 10:45
DX: M54.2 Cervicalgia (principal); G89.29 Other chronic pain
CPT/HCPCS: 99283; 96374; 96375; J1885; J1170

== ENCOUNTER 2018-12-30 08:35 | Emergency (ER) | payer MEDICAID ==
[2018-12-30 08:40] VITALS: BP 133/92
[2018-12-30] MEDS ORDERED: KETOROLAC TROMETHAMINE 60 MG/2 ML SDV IM ONE (09:16)
[2018-12-30] MEDS ORDERED: DEXAMETHASONE SOD PHOS INJ 10 MG/1 ML VIAL IM ONE (09:16)
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
== END 2018-12-30 09:35 | disposition home or self-care (01) ==
LOC: ER 08:35
DX: M50.20 Other cervical disc displacement, unspecified cervical region (principal); M48.02 Spinal stenosis, cervical region; G89.29 Other chronic pain
CPT/HCPCS: 99283; 96374; 96375; J1885; J1100

== ENCOUNTER 2019-01-04 10:44 | Emergency (ER) | payer MEDICAID ==
[2019-01-04 10:50] VITALS: BP 123/75
--- NOTE | 2019-01-04 11:13 | ER Document Report ---
ED Neck/Back Problem - General Chief Complaint: Neck Pain >24hrs old Stated Complaint: NECK/BACK PAIN Time Seen by Provider: 01/04/19 10:59 Primary Care Provider: MORENITA MEDEIROS MD [Primary Care Provider] - Follow up in 3-5 days Mode of Arrival: Ambulatory Information source: Patient Notes: 28-year-old female presented to ED for complaint of chronic neck pain. She states is been several months. She states she has been to her primary care and [facility] for surgery and she does have a bulging disc in her neck. She states she is been told she needed surgery and she is trying to get it all arranged to [facility]. She has been to the emergency room multiple times for this pain since November 11. She has been told multiple times she needs t o go to her primary care doctor for pain medications. She is on gabapentin Lidoderm patches muscle relaxers. She has no change in her neurological status just pain in her neck and shoulders. TRAVEL OUTSIDE OF THE [place] IN LAST 30 DAYS: No - HPI Patient complains to provider of: Pain, Neck. No: Injury Onset: Other - Chronic Onset: Chronic Timing: Still present Quality of pain: Burning, Sharp Severity: Moderate Pain Level: 4 Recent injury: No Associated symptoms: Like prior neck/back pain. denies: Radiation to arm Exacerbated by: Movement of neck Relieved by: Nothing Similar symptoms previously: Yes Recently seen / treated by doctor: Yes - Related Data Allergies/Adverse Reactions: No Known Allergies Allergy (Verified 12/07/18 10:46) Past Medical History - General Information source: Patient - Social History Smoking Status: Current Every Day Smoker Cigarette use (# per day): Yes - One half pack a day Smoking Education Provided: Yes - 4 minutes Frequency of alcohol use: None Drug Abuse: None Lives with: Family Family History: Malignancy Patient has suicidal ideation: No Patient has homicidal ideation: No - Past Medical History Cardiac Medical History: Reports: None Pulmonary Medical History: Reports: None EENT Medical History: Reports: None Neurological Medical History: Reports: Hx Migraine Endocrine Medical History: Reports: None Renal/ Medical History: Reports: Hx Ovarian Cysts Malignancy Medical History: Reports: None GI Medical History: Reports: None, Hx Hepatitis - Hepatitis C Musculoskeletal Medical History: Reports Hx Musculoskeletal Deformity, Reports Hx Musculoskeletal Trauma Skin Medical History: Reports Hx Cellulitis, Reports Hx MRSA Psychiatric Medical History: Reports: Hx Anxiety, Hx Depression Traumatic Medical History: Reports: None Infectious Medical History: Reports: Hx Hepatitis - Hepatitis C Past Surgical History: Reports: Hx Section - Immunizations Immunizations up to date: Yes Hx Diphtheria, Pertussis, Tetanus Vaccination: Yes Review of Systems - Review of Systems Constitutional: No symptoms reported EENT: No symptoms reported Cardiovascular: No symptoms reported Respiratory: No symptoms reported Gastrointestinal: No symptoms reported Genitourinary: No symptoms reported Female Genitourinary: No symptoms reported Musculoskeletal: Muscle pain, Muscle stiffness, Neck pain - Chronic neck pain Skin: No symptoms reported Hematologic/Lymphatic: No symptoms reported Neurological/Psychological: No symptoms reported -: Yes All other systems reviewed and negative Physical Exam - Vital signs Vitals: Temp Pulse Resp BP Pulse Ox 97.6 F 116 H 20 123/75 96 01/04/19 10:47 01/04/19 10:47 01/04/19 10:47 01/04/19 10:47 01/04/19 10:47 Interpretation: Normal - General General appearance: Appears well, Alert - HEENT Head: Normocephalic, Atraumatic Eyes: Normal Pupils: PERRL - Respiratory Respiratory status: No respiratory distress Chest status: Nontender Breath sounds: Normal Chest palpation: Normal - Cardiovascular Rhythm: Regular Heart sounds: Normal auscultation Murmur: No - Abdominal Inspection: Normal Distension: No distension Bowel sounds: Normal Tenderness: Nontender Organomegaly: No organomegaly - Back Back: Normal, Tender - Neck pain same area unchanged no new injuries no change in neurological status - Extremities General upper extremity: Normal inspection, Nontender, Normal color, Normal ROM, Normal temperature General lower extremity: Normal inspection, Nontender, Normal color, Normal ROM, Normal temperature, Normal weight bearing. 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 I did tell her I could give her some steroid shot or some steroid medications and a prescription for her pain she would need to follow-up with her primary care doctor for any narcotics. She has naproxen ibuprofen Advil Tylenol and gabapentin as well as muscle relaxers at home. Patient was given instructions on exercises for the shoulders and neck and to follow-up with her primary care doctor she was also given instructions for lidocaine jelly or [id number] patches. Patient verbalized understanding and agreement with treatment plan. Patient did leave before she got her written discharge instructions. - Vital Signs Vital signs: Temp Pulse Resp BP Pulse Ox 97.6 F 97 20 123/75 97 01/04/19 10:47 01/04/19 11:21 01/04/19 10:47 01/04/19 10:47 01/04/19 11:21 Discharge - Discharge Clinical Impression: Chronic neck pain Condition: Stable Disposition: HOME, SELF-CARE Additional Instructions: Chronic Pain Control Stress, inactivity, and depression make pain more severe regardless of the cause of the pain. Stress and poor physical condition can cause pain such as headaches and backache. Relaxation: Rest in a quiet place with your eyes closed for 20 minutes twice daily. Concentrate on a pleasant image, or simply "feel" your breathing. Clear your mind. Stress management: Deal with your "stressors." Either take action, or eliminate the stressor from your life. Don't let things hang over you. Accept those things you can't change. Nutrition: Eat small, balanced meals -- don't skip, don't overeat. Meals should be high-carbohydrate, low-sugar, low-fat. Exercise: Exercise helps painful conditions and eases stress. Get 30 minutes of moderate exercise, five days a week. Do an activity that does not flare your pain. Precautions: Pain which continues to disrupt daily activities, or which changes in nature, requires a medical evaluation. Pain Clinic referral is available. We do not manage chronic pain in the Emergency Department. We will try to appropriately help you through an acute flare of your chronic painful condition, but for on-going chronic pain that does not improve, you will need to see your private doctor or foxing painter. We do not provide repeated medication management of chronic painful conditions. If you wish, we can provide the name of local pain management physicians. ICE PACKS: Apply ice packs frequently against the painful area. Many different schedules are recommended, such as "20 minutes on, 20 minutes off" or "one hour ice, two hours rest." If you need to work, you may need to go longer between ice treatments. You should plan to have the area ice packed AT LEAST one fourth of the time. The ice should be applied over the wrap, tape, or splint, or over a layer of cloth -- not directly against the skin. Some ice bags have a built-in cloth and can be put directly on the skin. WARM PACKS: After approximately two days, apply gentle heat (such as a heating pad or hot water bottle) for about 20 to 30 minutes about every two hours -- at least four times daily. Warmth and elevation will help you make a more rapid recovery, and will ease the pain considerably. Do not use HOT heat, and never apply heat for longer than 30 minutes. The continuous heat can invisibly damage skin and muscles -- even when no burn is seen on the surface. Damaged muscles can make you MORE sore. STEROID MEDICATION: You have been given a medicine of the cortisone/steroid class. This medication is used to control inflammation or allergy. It is usually only given for a short period of time, until the acute process subsides. There are usually no side effects from short-term use of cortisone-like medications. Some persons feel an increased sense of well-being and are not sleepy at bedtime. Long-term use of cortisone medications is best avoided, unless required for a severe condition. If your condition does not remit, or relapses after the course of corticosteroid medication, you should consult your physician. FOLLOW-UP CARE: If you have been referred to a physician for follow-up care, call the physicians office for an appointment as you were instructed or within the next two days. If you experience worsening or a significant change in your symptoms, notify the physician immediately or return to the Emergency Department at any t [facility] for re-evaluation. Prescriptions: Prednisone [Deltasone 20 mg Tablet] 2 tab PO DAILY 3 Days tablet Forms: Smoking Cessation Education Referrals: MORENITA MEDEIROS MD [Primary Care Provider] - Follow up in 3-5 days
== END 2019-01-04 11:38 | disposition home or self-care (01) ==
LOC: ER 10:44
DX: M54.2 Cervicalgia (principal); G89.29 Other chronic pain; M54.9 Dorsalgia, unspecified; F17.210 Nicotine dependence, cigarettes, uncomplicated
CPT/HCPCS: 99283; 99406

== ENCOUNTER 2020-02-16 15:02 | Emergency (ER) | payer MEDICAID ==
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
[2020-02-16] MEDS ORDERED: HYDROMORPHONE HCL INJ/PF 2 MG/ML AMPULE IM ONE (19:00)
[2020-02-16] MEDS ORDERED: ONDANSETRON HCL INJ/PF 4 MG/2 ML SDV IM ONE (19:01)
--- NOTE | 2020-02-16 19:35 | RADIOLOGY REPORT (SQ) ---
EXAM DESCRIPTION: INJECT EXISTING/TUBE PLACEMENT IMAGES COMPLETED DATE/TIME: 02/16/2020 7:16 pm REASON FOR STUDY: check feeding tube w/ Gastrografin COMPARISON: None. NUMBER OF VIEWS: One view. TECHNIQUE: Injection of contrast through existing catheter. Supine radiographic image of the abdomen acquired. LIMITATIONS: None. FINDINGS: BOWEL GAS PATTERN: Normal bowel gas pattern. No dilated loops. CALCIFICATIONS: No suspicious calcifications. SOFT TISSUES: No gross mass or suggestion of organomegaly. HARDWARE: Tip of the gastrostomy tube is in the gastric antrum. Contrast fills the lumen of the stom ach with no extravasation. There is hardware in the sacrum and left hip and in the inferior vena cav a filter. BONES: No acute fracture. No worrisome bone lesions. OTHER: No other significant finding. IMPRESSION: TIP OF THE GASTROSTOMY TUBE IS IN THE GASTRIC ANTRUM. CONTRAST FILLS THE STOMACH WITH N O EXTRAVASATION. TECHNICAL DOCUMENTATION: JOB ID: [id number] 2010 [employer]- All Rights Reserved FLUOROSCOPY TIME: No fluoroscopy performed. 2 images saved to PACS. Reading location - IP/workstation name: [email or web address]
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
[2020-02-16 21:04] VITALS: BP 160/74
== END 2020-02-16 21:03 | disposition home or self-care (01) ==
LOC: ER 15:02
DX: K94.23 Gastrostomy malfunction (principal); Y83.3 Surgical operation with formation of external stoma as the cause of abnormal reaction of the patient, or of later complication, without mention of misadventure at the time of the procedure
CPT/HCPCS: 99284; 96372; 49465; 43762; J1170; J2405

== ENCOUNTER 2020-03-26 11:35 | Emergency (ER) | payer MEDICAID ==
--- NOTE | 2020-03-26 12:18 | ER Document Report ---
ED Medical Screen (RME) - General Chief Complaint: Fall Stated Complaint: FALL/BODY PAIN Time Seen by Provider: 03/26/20 12:14 Primary Care Provider: MORENITA MEDEIROS MD [Primary Care Provider] - Follow up as needed Mode of Arrival: Wheelchair Information source: Patient Notes: 29-year-old female presents to ED for complaint of abdominal pain around the umbilicus, left leg and arm pain. She states she fell 2 days ago. She is in a wheelchair. She states she has been able to lift her leg up but since the fall she has not been able to lift it up she has to pick it up with her arms. I have ordered blood urine x-rays of the arm and leg and she will be seen by another provider. I have greeted and performed a rapid initial assessment of this patient. A comprehensive ED assessment and evaluation of the patient, analysis of test results and completion of medical decision making process will be conducted by an additional ED providers. TRAVEL OUTSIDE OF THE [place] IN LAST 30 DAYS: No - Related Data Allergies/Adverse Reactions: No Known Allergies Allergy (Verified 12/07/18 10:46) Past Medical History Pulmonary Medical History: Reports: Hx Respiratory Failure Neurological Medical History: Reports: Hx Migraine. Denies: Hx Cerebrovascular Accident, Hx Seizures Endocrine Medical History: Denies: Hx Diabetes Mellitus Type 1, Hx Diabetes Mellitus Type 2 Renal/ Medical History: Reports: Hx Ovarian Cysts. Denies: Hx Peritoneal Dialysis GI Medical History: Reports: Hx Hepatitis - Hepatitis C Musculoskeltal Medical History: Reports Hx Musculoskeletal Deformity, Reports Hx Musculoskeletal Trauma Skin Medical History: Reports Hx Cellulitis, Reports Hx MRSA Psychiatric Medical History: Reports: Hx Anxiety, Hx Depression Traumatic Medical History: Reports: Hx Fractures - femur Infectious Medical History: Reports: Hx Hepatitis - Hepatitis C Past Surgical History: Reports: Hx Section, Other - Splenectomy - Immunizations Immunizations up to date: Yes Hx Diphtheria, Pertussis, Tetanus Vaccination: Yes Physical Exam - Vital signs Vitals: Pulse Resp BP Pulse Ox 101 H 18 109/78 98 03/26/20 11:45 03/26/20 11:45 03/26/20 11:45 03/26/20 11:45 Course - Vital Signs Vital signs: Temp Pulse Resp BP Pulse Ox 101 H 18 109/78 98 03/26/20 11:45 03/26/20 11:45 03/26/20 11:45 03/26/20 11:45 Doctor's Discharge - Discharge Referrals: MORENITA MEDEIROS MD [Primary Care Provider] - Follow up as needed
[2020-03-26 13:14] LABS: ABSOLUTE BASOPHILS # (AUTO) 0.1 10^3/uL (0.0-0.2); ABSOLUTE EOSINOPHILS # (AUTO) 0.4 10^3/uL (0.0-0.6); ABSOLUTE LYMPHOCYTES (AUTO) 3.5 10^3/uL (0.5-4.7); ABSOLUTE MONOCYTES (AUTO) 0.6 10^3/uL (0.1-1.4); ABSOLUTE NEUT (AUTO) 4.9 10^3/uL (1.7-8.2); HEMATOCRIT 42.8 % (36.0-47.0); HEMOGLOBIN 14.5 g/dL (12.0-15.5); LYMPHOCYTES % (AUTO) 36.4 % (13-45); MEAN CORPUSCULAR HEMOGLOBIN 31.1 pg (27.0-33.4); MEAN CORPUSCULAR HGB CONC 33.8 g/dL (32.0-36.0); MEAN CORPUSCULAR VOLUME 92 fl (80-97); MONOCYTES % (AUTO) 6.5 % (3-13); PLATELET COUNT 582 10^3/uL (150-450); RED BLOOD COUNT 4.65 10^6/uL (3.72-5.28); RED CELL DISTRIBUTION WIDTH 14.1 % (11.5-14.0); SEGMENTED NEUTROPHILS % (AUTO) 52.1 % (42-78); TOTAL CELLS COUNTED % (AUTO) 100 %; WHITE BLOOD COUNT 9.5 10^3/uL (4.0-10.5)
[2020-03-26 13:26] LABS: ALBUMIN 4.6 g/dL (3.5-5.0); ALKALINE PHOSPHATASE 88 U/L (38-126); ANION GAP 13 (5-19); ASPARTATE AMINO TRANSFERASE 17 U/L (14-36); BILIRUBIN,DIRECT 0.1 mg/dL (0.0-0.4); BILIRUBIN,TOTAL 0.4 mg/dL (0.2-1.3); BLOOD UREA NITROGEN 10 mg/dL (7-20); CARBON DIOXIDE 27 mmol/L (22-30); CHLORIDE 101 mmol/L (98-107); POTASSIUM 4.6 mmol/L (3.6-5.0)
[2020-03-26] MEDS ORDERED: NORMAL SALINE 1000 ML 1,000 ML IV ONE ×2 (13:28→14:21)
[2020-03-26 13:29] LABS: GLUCOSE 63 mg/dL (75-110)
[2020-03-26] MEDS ORDERED: DEXTROSE 50%-WATER 25 GM/50 ML DISP.SYRIN IV ONE (13:37)
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
[2020-03-26 13:44] LABS: APPEARANCE,URINE CLEAR; BILIRUBIN,URINE NEGATIVE (NEGATIVE); COLOR,URINE STRAW; GLUCOSE, URINE NEGATIVE (NEGATIVE); KETONES,URINE NEGATIVE (NEGATIVE); LEUKOCYTE ESTERASE,URINE NEGATIVE (NEGATIVE); NITRITE,URINE NEGATIVE (NEGATIVE); PROTEIN,URINE NEGATIVE (NEGATIVE); URINE SPECIFIC GRAVITY 1.006; UROBILINOGEN,URINE NEGATIVE mg/dL (<2.0)
--- NOTE | 2020-03-26 14:07 | RADIOLOGY REPORT (SQ) ---
EXAM DESCRIPTION: FEMUR LEFT; TIBIA FIBULA LEFT; HUMERUS LEFT IMAGES COMPLETED DATE/TIME: 03/26/2020 1:34 pm REASON FOR STUDY: All pain states she cannot lift up her left leg no COMPARISON: None. FINDINGS: Two views left humerus: Normal. Two views left femur: Previous scratch had previous open reduction internal fixation of proximal fem ur fracture. Instrumentation looks intact. No acute fracture. The proximal femur fracture lines ar e still largely evident. Chronic fractures in the pubic bones are also noted. Two views left tibia and fibula: Normal. TECHNICAL DOCUMENTATION: JOB ID: [id number] Reading location - IP/workstation name: [email or web address]
--- NOTE | 2020-03-26 14:07 | RADIOLOGY REPORT (SQ) ---
EXAM DESCRIPTION: FEMUR LEFT; TIBIA FIBULA LEFT; HUMERUS LEFT IMAGES COMPLETED DATE/TIME: 03/26/2020 1:34 pm REASON FOR STUDY: All pain states she cannot lift up her left leg no COMPARISON: None. FINDINGS: Two views left humerus: Normal. Two views left femur: Previous scratch had previous open reduction internal fixation of proximal fem ur fracture. Instrumentation looks intact. No acute fracture. The proximal femur fracture lines ar e still largely evident. Chronic fractures in the pubic bones are also noted. Two views left tibia and fibula: Normal. TECHNICAL DOCUMENTATION: JOB ID: [id number] Reading location - IP/workstation name: [email or web address]
--- NOTE | 2020-03-26 14:07 | RADIOLOGY REPORT (SQ) ---
EXAM DESCRIPTION: FEMUR LEFT; TIBIA FIBULA LEFT; HUMERUS LEFT IMAGES COMPLETED DATE/TIME: 03/26/2020 1:34 pm REASON FOR STUDY: All pain states she cannot lift up her left leg no COMPARISON: None. FINDINGS: Two views left humerus: Normal. Two views left femur: Previous scratch had previous open reduction internal fixation of proximal fem ur fracture. Instrumentation looks intact. No acute fracture. The proximal femur fracture lines ar e still largely evident. Chronic fractures in the pubic bones are also noted. Two views left tibia and fibula: Normal. TECHNICAL DOCUMENTATION: JOB ID: [id number] Reading location - IP/workstation name: [email or web address]
[2020-03-26] MEDS ORDERED: KETOROLAC TROMETHAMINE INJ/PF 30 MG/1 ML SDV IV ONE (14:27)
--- NOTE | 2020-03-26 15:46 | RADIOLOGY REPORT (SQ) ---
EXAM DESCRIPTION: CT ABD/PELVIS WITH IV ORAL IMAGES COMPLETED DATE/TIME: 03/26/2020 3:18 pm REASON FOR STUDY: Periumbilical pain, abdominal pain COMPARISON: None. TECHNIQUE: CT scan of the abdomen and pelvis performed with intravenous and oral contrast using baldomero sanaz scanning technique with dynamic intravenous contrast injection. Images reviewed with lung, soft t issue, and bone windows. Reconstructed coronal and sagittal MPR images reviewed. Delayed images for e valuation of the urinary system also acquired. All images stored on PACS. All CT scanners at this facility use dose modulation, iterative reconstruction, and/or weight based d osing when appropriate to reduce radiation dose to as low as reasonably achievable (ALARA). [facility]: Dose Right [facility]: CareDose [facility]: Dose Right [facility]: Teradose 4D [facility]: [place] Sunglass CONTRAST TYPE AND DOSE: contrast/concentration: Isovue 350.00 mmol/ml; Total Contrast Delivered: 65. 0 ml; Total Saline Delivered: 65.0 ml 100 mL Omnipaque 350- low osmolar. RENAL FUNCTION: None required. The patient is less than 50 years old. RADIATION DOSE: CT Rad equipment meets quality standard of care and radiation dose reduction techniq ues were employed. CTDIvol: 4.8 - 5.2 mGy. DLP: 523 mGy-cm.. LIMITATIONS: None. FINDINGS: LOWER CHEST: There is patchy consolidation in the posterior aspect of the bilateral lower lobes, left greater than right. No pleural effusion. No evidence for pneumothorax. LIVER: Normal size. No masses. No dilated ducts. SPLEEN: Normal size. No focal lesions. PANCREAS: No masses. No significant calcifications. No adjacent inflammation or peripancreatic fluid collections. Pancreatic duct not dilated. GALLBLADDER: No identified stones by CT criteria. No inflammatory changes to suggest cholecystitis. ADRENAL GLANDS: No significant masses or asymmetry. RIGHT KIDNEY AND URETER: No solid masses. No significant calcification. No hydronephrosis or hydroure ter. LEFT KIDNEY AND URETER: No solid masses. No significant calcification. No hydronephrosis or hydrouret er. AORTA AND VESSELS: No aneurysm. No dissection. Renal arteries, SMA, celiac without stenosis. Inferio r vena cava filter is present. RETROPERITONEUM: No retroperitoneal adenopathy, hemorrhage or masses. BOWEL AND PERITONEAL CAVITY: No obstruction. No visualized masses. No free fluid. No inflammatory ch anges or thickening of bowel wall. APPENDIX: Not visualized. PELVIS: No significant masses. Normal bladder. No free fluid. ABDOMINAL WALL: No masses. No hernias. BONES: Surgical fixation through the sacrum/bilateral sacroiliac joints is noted. Chronic comminuted fractures of the bilateral superior and inferior pubic rami are present. Orthopedic fixation hardwa re is present in the left femoral head/neck. OTHER: No other significant finding. IMPRESSION: No acute inflammatory changes in the abdomen or pelvis. TECHNICAL DOCUMENTATION: JOB ID: [id number] Quality ID # [id number]: Final reports with documentation of one or more dose reduction techniques (e.g., Au tomated exposure control, adjustment of the mA and/or kV according to patient size, use of iterative reconstruction technique) 2010 [email or web address]- All Rights Reserved Reading location - IP/workstation name: [email or web address]
[2020-03-26 15:48] VITALS: BP 110/61
[2020-03-26] MEDS ORDERED: HYDROCODONE/ACETAMINOPHEN 5-325 MG (6 TAB/ER DISP) PO PRN (15:53)
[2020-03-26] MEDS ORDERED: ONDANSETRON HCL INJ/PF 4 MG/2 ML SDV IV ONE (16:01)
[2020-03-26] MEDS ORDERED: MORPHINE SULFATE 10 MG/ML INJ IV ONE (16:01)
== END 2020-03-26 16:41 | disposition home or self-care (01) ==
LOC: ER 11:35
DX: R10.33 Periumbilical pain (principal); R10.815 Periumbilic abdominal tenderness; M79.605 Pain in left leg; M79.602 Pain in left arm; W19.XXXA Unspecified fall, initial encounter; M84.454A Pathological fracture, pelvis, initial encounter for fracture; Z90.81 Acquired absence of spleen
CPT/HCPCS: 99285; 96361; 96374; 96375; 36415; 82962; 83690; 84703; 85025; 81025; 80053; 81001; 73552; 73060; 73590; 74177; J3490; J1885; J2270; J2405; J7030

== ENCOUNTER 2020-06-03 19:01 | Emergency (ER) | payer MEDICAID ==
[2020-06-03 20:13] LABS: ABSOLUTE BASOPHILS # (AUTO) 0.1 10^3/uL (0.0-0.2); ABSOLUTE EOSINOPHILS # (AUTO) 0.2 10^3/uL (0.0-0.6); ABSOLUTE LYMPHOCYTES (AUTO) 2.6 10^3/uL (0.5-4.7); ABSOLUTE MONOCYTES (AUTO) 1.2 10^3/uL (0.1-1.4); ABSOLUTE NEUT (AUTO) 9.4 10^3/uL (1.7-8.2); BASOPHILS % (AUTO) 0.9 % (0-2); EOSINOPHILS % (AUTO) 1.8 % (0-6); HEMATOCRIT 43.3 % (36.0-47.0); HEMOGLOBIN 14.4 g/dL (12.0-15.5); LYMPHOCYTES % (AUTO) 19.4 % (13-45); MEAN CORPUSCULAR HEMOGLOBIN 29.6 pg (27.0-33.4); MEAN CORPUSCULAR HGB CONC 33.2 g/dL (32.0-36.0); MEAN CORPUSCULAR VOLUME 89 fl (80-97); MONOCYTES % (AUTO) 8.5 % (3-13); PLATELET COUNT 490 10^3/uL (150-450); RED BLOOD COUNT 4.87 10^6/uL (3.72-5.28); RED CELL DISTRIBUTION WIDTH 14.8 % (11.5-14.0); SEGMENTED NEUTROPHILS % (AUTO) 69.4 % (42-78); TOTAL CELLS COUNTED % (AUTO) 100 %; WHITE BLOOD COUNT 13.6 10^3/uL (4.0-10.5)
[2020-06-03 20:23] LABS: ALBUMIN 4.7 g/dL (3.5-5.0); ALKALINE PHOSPHATASE 88 U/L (38-126); ANION GAP 6 (5-19); ASPARTATE AMINO TRANSFERASE 18 U/L (14-36); BILIRUBIN,DIRECT 0.2 mg/dL (0.0-0.4); BILIRUBIN,TOTAL 0.5 mg/dL (0.2-1.3); BLOOD UREA NITROGEN 16 mg/dL (7-20); CALCIUM 9.8 mg/dL (8.4-10.2); CARBON DIOXIDE 32 mmol/L (22-30); CHLORIDE 100 mmol/L (98-107); GLUCOSE 133 mg/dL (75-110); POTASSIUM 4.3 mmol/L (3.6-5.0)
[2020-06-03 20:26] LABS: ACETAMINOPHEN < 10 ug/mL (10-30); ALCOHOL < 10 mg/dL (NONE DETECTED); SALICYLATE < 1.0 mg/dL (2.0-20.0)
--- NOTE | 2020-06-03 22:08 | EKG REPORT ---
SEVERITY:- ABNORMAL ECG - SINUS TACHYCARDIA NONSPECIFIC T ABNORMALITIES, DIFFUSE LEADS : Confirmed by: Kyle Peck 03-Jun-2020 22:08:04
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
[2020-06-04] MEDS ORDERED: LORAZEPAM 1 MG TABLET PO ONE (00:08)
[2020-06-04 10:44] LABS: APPEARANCE,URINE SLIGHTLY-CLOUDY; BILIRUBIN,URINE NEGATIVE (NEGATIVE); COLOR,URINE YELLOW; GLUCOSE, URINE NEGATIVE (NEGATIVE); KETONES,URINE NEGATIVE (NEGATIVE); LEUKOCYTE ESTERASE,URINE LARGE (NEGATIVE); NITRITE,URINE POSITIVE (NEGATIVE); PROTEIN,URINE NEGATIVE (NEGATIVE); UROBILINOGEN,URINE NEGATIVE mg/dL (<2.0)
[2020-06-04] MEDS ORDERED: ACETAMINOPHEN SOLN 325 MG/10.15 ML UDCUP PO ONE (10:50)
[2020-06-04 10:57] LABS: URINE AMPHETAMINES SCREEN NEGATIVE; URINE BARBITURATES SCREEN NEGATIVE; URINE COCAINE SCREEN NEGATIVE; URINE METHADONE SCREEN NEGATIVE; URINE PHENCYCLIDINE SCREEN NEGATIVE
[2020-06-04 10:58] LABS: URINE BENZODIAZEPINES SCREEN UNCONFIRMED POSITIVE; URINE MARIJUANA (THC) SCREEN UNCONFIRMED POSITIVE
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
--- NOTE | 2020-06-04 12:48 | ER Document Report ---
Doctor's Note Notes: 06/04/20 12:47 My mental health holdPatient's vital signs and previous labs, diagnostic images reviewed. Reviewed mental health notes, nurse's notes and previous providers notes. VSS. Pt is in no distress at this time. Denies any SI or HI. Patient appears to have a UTI, will treat with outpatient antibiotics per standard of care. Urine culture pending General: A&Ox3. Answers questions appropriately. Heart: RRR Lungs: CTAB Psych: Flat affect A/P: Continue monitoring and rec's per MH. Normal diet plan: Discharge home, mental health resources provided
[2020-06-04 13:01] VITALS: BP 112/60
== END 2020-06-04 13:06 | disposition other institution (70) ==
LOC: ER 19:01
DX: F19.10 Other psychoactive substance abuse, uncomplicated (principal); N39.0 Urinary tract infection, site not specified; Z93.0 Tracheostomy status; R45.851 Suicidal ideations; F17.200 Nicotine dependence, unspecified, uncomplicated; Z86.19 Personal history of other infectious and parasitic diseases
CPT/HCPCS: 93005; 99285; 36415; 80307 ×4; 84703; 85025; 80053; 81001; 93010; J3490

== ENCOUNTER 2020-06-21 01:23 | Emergency (ER) | payer MEDICAID, OTHER ==
[2020-06-21] MEDS ORDERED: ACETAMINOPHEN 325 MG TABLET PO ONE (02:07)
[2020-06-21 04:35] LABS: APPEARANCE,URINE SLIGHTLY-CLOUDY; BILIRUBIN,URINE NEGATIVE (NEGATIVE); COLOR,URINE YELLOW; GLUCOSE, URINE NEGATIVE (NEGATIVE); KETONES,URINE NEGATIVE (NEGATIVE); LEUKOCYTE ESTERASE,URINE MODERATE (NEGATIVE); NITRITE,URINE POSITIVE (NEGATIVE); PROTEIN,URINE NEGATIVE (NEGATIVE); URINE SPECIFIC GRAVITY 1.009; UROBILINOGEN,URINE NEGATIVE mg/dL (<2.0)
[2020-06-21 04:44] LABS: URINE AMPHETAMINES SCREEN NEGATIVE; URINE BARBITURATES SCREEN NEGATIVE; URINE BENZODIAZEPINES SCREEN UNCONFIRMED POSITIVE; URINE COCAINE SCREEN NEGATIVE; URINE MARIJUANA (THC) SCREEN UNCONFIRMED POSITIVE; URINE METHADONE SCREEN NEGATIVE; URINE PHENCYCLIDINE SCREEN NEGATIVE
--- NOTE | 2020-06-21 05:27 | ER Document Report ---
ED Fall - General Chief Complaint: Fall Injury Stated Complaint: BODY PAIN/COUGH/RUNNY NOSE/HEADACHE Time Seen by Provider: 06/21/20 05:01 Primary Care Provider: MORENITA MEDEIROS MD [Primary Care Provider] - Follow up as needed Mode of Arrival: Wheelchair Information source: Patient Notes: 29-year-old female presented to ED for complaint of pain to her left thigh and right shoulder. She states she cannot get up when she cannot sleep because of the pain in these areas. She states she fell when she slipped in the shower 3 days ago and now the pain is such that she cannot walk. She states she does have rotten screws in her left thigh and she thinks that they are twisted and broken. He also complains of pain inside the right shoulder. She has full range of motion to the shoulder is able to pick herself up and down with the bed rail but states she has pain with any movement. She denies any pain in the back or pelvic area. I did palpate the back and the pelvic area and she states there was no pain anywhere except for the left femur and right shoulder. She does have a black eye from her fall. The patient had a urine and a urine drug screen done before I picked her chart up. She was positive for opiates and she states she took an oxycodone that someone gave her. She is also positive for benzos and she states she is on benzos. She states she was takes marijuana sometimes but not all the time. She also has a UTI with positive nitrates and moderate leukocytes. We will send a culture on the urine and get x-rays of the thigh and shoulder. Constitutional: Negative for fever. HENT: Negative for sore throat. Eyes: Negative for visual changes. Cardiovascular: Negative for chest pain. Respiratory: Negative for shortness of breath. Gastrointestinal: Negative for abdominal pain, vomiting or diarrhea. Genitourinary: Negative for dysuria. Musculoskeletal: Patient denies any pain in the back. She states her pain is in her left thigh and her right shoulder. She states she fell 3 days ago and now the left eye is so painful and feels like the right and screws are broken and twisting when she moves. Skin: Negative for rash. Neurological: Negative for headaches, weakness or numbness. 10 point ROS negative except as marked above and in HPI. VITAL SIGNS: Within normal limits. GENERAL: No acute distress, non-toxic appearance. HEAD: Normal with no signs of head trauma. EYES: PERRLA, EOMI, conjunctiva normal, no discharge. EARS: Hearing grossly intact. NOSE: Normal. THROAT: Oropharynx is normal. NECK: Normal range of motion, no tenderness, supple, no lymphadenopathy, No adenopathy, no JVD. CHEST: Clear breath sounds bilaterally. No wheezes, rales, or rhonchi. CARDIAC: Regular rate and rhythm. S1 and S2, without murmurs, gallops, or rubs. VASCULAR: No Edema. Peripheral pulses normal and equal in all extremities. ABDOMEN: Normal and soft with no tenderness, no masses or pulsatile masses. GASTROINTESTINAL: Bowel sounds normal GENITOURINARY: Normal, No tenderness LYMPATHTIC: No lymphadenopathy noted. MUSCULOSKELETAL: Patient has pain with any movement to the left leg. She states the pain is inside of her thigh. No tenderness to palpation to anywhere except for the thigh. She has sensation and pedal pulses in this leg. She also states she has pain in her right shoulder but there is no tenderness to palpation and she does have full range of motion to the right shoulder. NEUROLOGICAL: Alert and oriented x 3. No focal sensory or strength deficits. Speech normal. Follows commands appropriately. PSYCHIATRIC: Normal Affect, judgement and mood. SKIN: Normal appearance with no rashes or lesions. TRAVEL OUTSIDE OF THE [place] IN LAST 30 DAYS: No - HPI Occurred: Other - 3 days ago Where: Home, Indoors Context: Tripped, Slipped - In the shower 3 days ago Associated symptoms: None Location of injury/pain: Shoulder - Right shoulder, Thigh - Left thigh Quality of pain: Sharp, Throbbing Severity: Severe Pain Level: 5 - Related data Allergies/Adverse Reactions: No Known Allergies Allergy (Verified 06/21/20 01:57) Home Medications: " I REALLY DONT KNOW ALL MY MEDS". Past Medical History - General Information source: Patient - Social History Smoking Status: Current Every Day Smoker Frequency of alcohol use: None Drug Abuse: Marijuana, Prescription drugs - She states someone gave her oxycodone Lives with: Family Family History: Malignancy Patient has suicidal ideation: No Patient has homicidal ideation: No - Past Medical History Cardiac Medical History: Reports: None Pulmonary Medical History: Reports: Hx Respiratory Failure - Trach EENT Medical History: Reports: None Neurological Medical History: Reports: Hx Migraine Endocrine Medical History: Reports: None Renal/ Medical History: Reports: Hx Ovarian Cysts Malignancy Medical History: Reports: None GI Medical History: Reports: Hx Hepatitis - Hepatitis C Musculoskeletal Medical History: Reports Hx Musculoskeletal Deformity, Reports Hx Musculoskeletal Trauma Skin Medical History: Reports Hx Cellulitis, Reports Hx MRSA Psychiatric Medical History: Reports: Hx Anxiety, Hx Depression Traumatic Medical History: Reports: Hx Fractures - femur Infectious Medical History: Reports: Hx Hepatitis - Hepatitis C Past Surgical History: Reports: Hx Section, Other - 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 - Immunizations Immunizations up to date: Yes Hx Diphtheria, Pertussis, Tetanus Vaccination: Yes Physical Exam - Vital signs Vitals: Temp Pulse Resp BP Pulse Ox 100.3 F 116 H 16 112/64 98 06/21/20 01:33 06/21/20 01:33 06/21/20 01:33 06/21/20 01:33 06/21/20 01:33 Course - Vital Signs Vital signs: Temp Pulse Resp BP Pulse Ox 98.6 F 116 H 16 105/60 93 06/21/20 04:32 06/21/20 01:33 06/21/20 07:31 06/21/20 07:31 06/21/20 07:31 - Laboratory Results Laboratory Results Interpreted: 06/21/20 03:55 Urine Nitrite POSITIVE H Ur Leukocyte Esterase MODERATE H Critical Laboratory Results Reviewed: No Critical Results - Radiology Results Critical Radiology Results Reviewed: No Critical Results Discharge - Discharge Clinical Impression: Exacerbation of left hip pain Fall Qualifiers: Encounter type: initial encounter Qualified Code(s): W19.XXXA - Unspecified fall, initial encounter Pain in right shoulder Qualifiers: Chronicity: acute Qualified Code(s): M25.511 - Pain in right shoulder UTI (urinary tract infection) Qualifiers: Urinary tract infection type: acute cystitis Hematuria presence: without hematuria Qualified Code(s): N30.00 - Acute cystitis without hematuria Condition: Stable Disposition: HOME, SELF-CARE Additional Instructions: You were seen today for a fall 3 days ago. You state that the pain in your right shoulder has progressively gotten worse since your fall. Have completed an x-ray of your shoulder and your femur. There are no acute changes on either x-ray. It states that the fracture to the left femur is stable you will need to follow-up with your primary care doctor and try to get a referral back to the surgeon who originally repaired your femur if you continue to have pain in this area. URINARY TRACT INFECTION: Your evaluation indicates that you have a urinary tract infection. This is due to germs growing in the bladder. This is a common problem. This infection usually responds quickly to antibiotics. Your antibiotic should be taken exactly as prescribed. Drink plenty of fluids -- three to four quarts a day. Occasionally, a bladder anesthetic will be prescribed to help stop the feeling of urgency until the antibiotic has a chance to clear the infection. This may cause your urine to be dark orange. Certain urine infections require a culture. If the doctor obtained a culture, the results will be back in two days. You should call to see if a change in treatment is needed. A repeat urinalysis after you finish treatment is often recommended. The physician will let you know if further testing is required. Call the doctor if you develop fever, chills, flank pain, inability to urinate, or blood in the urine. NITROFURANTOIN (MACRODANTIN, MACROBID): You have received a prescription for nitrofurantoin (Macrodantin). This antibiotic is used for urinary tract infections. Women who are or nursing should notify the physician before taking this medicine. If you have ever had a problem caused by this medication in the past, be sure the physician is aware of it. Common side effects of this medicine include nausea, vomiting, or decreased appetite. Notify your physician if these side effects become severe. Immediately stop this medicine and call the physician if you develop cough, shortness of breath, chest pain, weakness, jaundice (yellow color of the skin and whites of the eyes), or a skin rash. Oral Narcotic Medication You have been given a [employer] dispense pack for pain control. This medication is a narcotic. It's best taken with food, as nausea can result if taken on an empty stomach. Don't operate machinery or drive within six hours of taking this medication. Do not combine this medicine with alcohol, or with any medication which can cause sedation (such as cold tablets or sleeping pills) unless you get permission from the physician. Narcotics tend to cause constipation. If possible, drink plenty of fluids and eat a diet high in fiber and fruits. USE OF CRUTCHES: The doctor has recommended that you not bear weight at this time. You will need to use crutches. Adjust the crutches so the tops come to about two inches under the armpit while you are standing upright. Use your hands -- not your armpits -- to support your weight. To get into a chair, support yourself with one crutch on the injured side. Hold the chair with the other hand, then lower yourself while putting all your weight on the good leg. Going up stairs is `good leg up, step up, then bring up crutches and bad leg.' Down stairs is `bad leg and crutches down, then bring good leg down.' If you develop numbness or swelling in an arm or hand, you are using the crutches incorrectly. Return if you are having any problems with the crutches. FOLLOW-UP CARE: If you have been referred to a physician for follow-up care, call the physicians office for an appointment as you were instructed or within the next two days. If you experience worsening or a significant change in your symptoms, notify the physician immediately or return to the Emergency Department at any time for re-evaluation. Prescriptions: Nitrofurantoin Monohyd/M-Cryst [Macrobid 100 mg Capsule] 100 mg PO BID #20 cap Forms: Smoking Cessation Education Referrals: MORENITA MEDEIROS MD [Primary Care Provider] - Follow up in 3-5 days
--- NOTE | 2020-06-21 07:02 | RADIOLOGY REPORT (SQ) ---
Right shoulder x-ray three views on 06/21/2020 at 5:56 AM CLINICAL INDICATION: Right shoulder pain after fall COMPARISON: None FINDINGS: The AC joint is well aligned. The glenohumeral joint is well located. There are no fractures. No bony abnormality is noted. IMPRESSION: No acute abnormality.
--- NOTE | 2020-06-21 07:21 | RADIOLOGY REPORT (SQ) ---
Left femur x-ray two views on 06/21/2020 at 5:45 AM CLINICAL INDICATION: Pain after fall COMPARISON: 03/26/2020 FINDINGS: Old left pelvic fractures are again noted. There is intramedullary arslan traversing a prior ununited left subtrochanteric proximal femur fracture. There is evidence of likely prior coil embolization in the left medial thigh proximally. No hardware complication is noted. No new fracture is noted. Visualized joints are well aligned. IMPRESSION: Stable appearance of prior ununited left proximal femur fracture.
[2020-06-21 07:42] VITALS: BP 105/60
[2020-06-21] MEDS ORDERED: HYDROCODONE/ACETAMINOPHEN 5-325 MG (6 TAB/ER DISP) PO PRN (07:51)
[2020-06-21] MEDS ORDERED: NITROFURANTOIN MONOHYD/M-CRYST 100 MG CAPSULE PO ONE (07:54)
== END 2020-06-21 08:24 | disposition home or self-care (01) ==
LOC: ER 01:23
DX: M25.511 Pain in right shoulder (principal); M25.552 Pain in left hip; M89.8X5 Other specified disorders of bone, thigh; W18.2XXA Fall in (into) shower or empty bathtub, initial encounter; Y92.002 Bathroom of unspecified non-institutional (private) residence as the place of occurrence of the external cause; N30.00 Acute cystitis without hematuria; F11.10 Opioid abuse, uncomplicated; F12.10 Cannabis abuse, uncomplicated; F17.200 Nicotine dependence, unspecified, uncomplicated; Z98.890 Other specified postprocedural states
CPT/HCPCS: 99284; 87086; 87088; 81001; 80307; 73552; 73030; J3490 ×2; 87186; J8499

== ENCOUNTER 2020-06-23 20:23 | Emergency (ER) | payer OTHER, MEDICAID ==
[2020-06-23 21:01] VITALS: BP 122/73
[2020-06-23] MEDS ORDERED: OXYCODONE-ACETAMINOPHEN 5-325 MG TABLET PO ONE (21:13)
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
== END 2020-06-23 21:20 | disposition home or self-care (01) ==
LOC: ER 20:23
DX: G89.29 Other chronic pain (principal); M25.552 Pain in left hip; V49.9XXA Car occupant (driver) (passenger) injured in unspecified traffic accident, initial encounter; Z93.0 Tracheostomy status
CPT/HCPCS: 99283